=== PATIENT | male | born 1945 | race Caucasian/White ===

== ENCOUNTER 2018-01-09 12:57 | Emergency (ER) | payer MEDICARE ==
[2018-01-09 13:17] VITALS: BP 160/87; PULSE 72; RESP 18; TEMP 97.8
[2018-01-09] MEDS ORDERED: DIPH,PERTUS(ACELL)TETVAC-LF 0.5 ML VIAL IM ONE (13:35)
[2018-01-09] MEDS ORDERED: BUPIVACAINE (PF) 0.75% 30 ML VIAL SQ STA (13:36)
[2018-01-09] MEDS ORDERED: IBUPROFEN 600 MG TAB PO STA (13:38)
--- NOTE | 2018-01-09 13:40 | ED ---
Upper Extremity HPI - General Chief Complaint: Extremity Injury, Upper Stated Complaint: severe LAC to rt thumb, Time Seen by Provider: 01/09/18 13:31 Source: patient Mode of arrival: ambulatory Limitations: no limitations - History of Present Illness Initial Comments: 72-year-old male presenting with right thumb laceration that occurred while using a table saw to make his grandson a dresser. She denies any numbness to the area. Unsure when his last tetanus vaccine was. Denies any blood thinner use. Patient is left handed. - Related Data Home Medications Medication Instructions Recorded Confirmed Ascorbic Acid [Vitamin C] 500 mg PO DAILY 08/24/14 12/09/15 Gabapentin [Neurontin] 300 mg PO HS 08/24/14 12/09/15 [place]-3 Fatty Acids/Fish Oil [Fish 1 tab PO DAILY 08/24/14 12/09/15 Oil 1,000 mg Softgel] rOPINIRole HCL [Requip Xl] 4 mg PO 1800 12/09/15 12/09/15 Previous Rx's Medication Instructions Recorded Aspirin 325 mg PO DAILY tab 12/10/15 Ibuprofen [Motrin] 600 mg PO Q6HR PRN #30 tab 01/09/18 Allergies Allergy/AdvReac Type Severity Reaction Status Date / Time No Known Allergies Allergy Verified 12/09/15 16:50 Review of Systems ROS Statement: Those systems with pertinent positive or pertinent negative responses have been documented in the HPI. Review of Systems Constitutional: Denies fever, chills Eyes: Denies change in vision, Denies pain Ears, nose, mouth, throat: Denies headaches, Denies sore throat Cardiovascular: Denies chest pain. Denies palpitations Respiratory: Denies shortness of breath, Denies cough Gastrointestinal: Denies abdominal pain. Denies nausea, vomiting, diarrhea. Genitourinary: Denies hematuria, Denies infections Musculoskeletal: Denies pain, Denies swelling Integumentary: Positive wound Neurological: Denies headache, focal weakness, focal numbness Psychiatric: Denies anxiety, Denies depression Hematologic/Lymphatic: Denies easy bleeding or bruising ROS Other: All systems not noted in ROS Statement are negative. Past Medical History Past Medical History: Coronary Artery Disease (CAD) Additional Past Medical History / Comment(s): restless leg History of Any Multi-Drug Resistant Organisms: None Reported Past Surgical History: Coronary Bypass/CABG, Hernia Repair, Orthopedic Surgery Additional Past Surgical History / Comment(s): 5 vessel Cabg in 2006, 10 years old had abdominal sx, fatty tissue removed from L shoulder Past Psychological History: No Psychological Hx Reported Smoking Status: Never smoker Past Alcohol Use History: None Reported Past Drug Use History: None Reported - Past Family History Father History Unknown: Yes Family Medical History: CVA/TIA, Hypertension, Myocardial Infarction ([place]) Mother Family Medical History: Cancer, Coronary Artery Disease (CAD) Sister(s) Family Medical History: Coronary Artery Disease (CAD) General Exam - General Exam Comments Initial Comments: General: Awake, alert, No acute Distress HENT: Normocephalic. Atraumatic Eyes: PERRL. EOMI. No scleral icterus. No injected conjunctiva Neck: Full ROM Chest/Lungs: Clear to auscultation bilaterally. No wheezing, rhonchi, or rales Cardiac: Regular rate, rhythm. No murmurs or rubs. 2+ radial pulse on right. Capillary refill <3 seconds. Abdomen/GI: Soft, nontender, nondistended. No rebound, guarding, or rigidity. Musculoskeletal: Full ROM. C6 sensation intact bilaterally. Full ROM of thumb Skin: 2 cm laceration to right thumb. Neurologic: A/Ox3, no weakness, no sensory deficit, no abnormal gait, no coordination deficit Limitations: no limitations Course Vital Signs 01/09/18 13:14 Temperature 97.8 F Pulse Rate 72 Respiratory 18 Rate Blood Pressure 160/87 O2 Sat by Pulse 96 Oximetry Procedures - Laceration Laceration #1 Time Out Performed: Yes Indication: laceration Site: hand Size (cm): 2 Description: linear Depth: simple, single layer Anesthetic Used: benzocaine 0.25% Anesthesia Technique: nerve block Amount (mls): 5 Pre-repair: wound explored, irrigated extensively, wound margins revised Type of Sutures: nylon Size of Sutures: 5-0, 6-0 Number of Sutures: 7 Technique: simple, interrupted Patient Tolerated Procedure: well Medical Decision Making - Medical Decision Making 32-year-old male presenting with laceration to right thumb. Initial exam the patient is awake, alert, no acute distress. VSS. Patient's tetanus updated. His x-ray showed no fracture. His wound was repaired after being extensively irrigated. Neurovascularly intact before the procedure. No further emergent workup indicated. The patient was given return to ED instructions. They were instructed to follow up with their primary care provider. Stable for discharge at this time. Disposition Clinical Impression: Laceration of right thumb Disposition: HOME SELF-CARE Condition: Good Instructions: Laceration (ED) Additional Instructions: Follow up with your primary care doctor for suture removal in 10 days Prescriptions: Ibuprofen [Motrin] 600 mg PO Q6HR PRN #30 tab PRN Reason: Pain Is patient prescribed a controlled substance at d/c from ED?: No Referrals: Stephen Sosa DO [Primary Care Provider] - 1-2 days
--- NOTE | 2018-01-09 14:04 | XR ---
EXAMINATION TYPE: XR finger RT , 3 VIEWS DATE OF EXAM ORDERED: 01/09/2018 HISTORY: Pain. COMPARISON: None. FINDINGS: No fracture, dislocation or radiopaque foreign body is seen. There are degenerative changes in the first carpal metacarpal joint. IMPRESSION: NO ACUTE OSSEOUS LESION.
== END 2018-01-09 15:11 | disposition home or self-care (01) ==
LOC: EC 12:57
DX: S61.011A Laceration without foreign body of right thumb without damage to nail, initial encounter (principal); I25.10 Atherosclerotic heart disease of native coronary artery without angina pectoris; G25.81 Restless legs syndrome; Z23 Encounter for immunization; Z79.899 Other long term (current) drug therapy; Z95.1 Presence of aortocoronary bypass graft; W31.2XXA Contact with powered woodworking and forming machines, initial encounter
CPT/HCPCS: 12001; 90471; 90715; 99283

== ENCOUNTER 2018-05-26 06:28 | Day surgery (SDC) | payer MEDICARE ==
[~2018-05-26 06:28] MED LIST: ALPRAZolam 0.25 MG TAB PO PRN; ALPRAZolam 0.5 MG TAB PO PRN; ASPIRIN 325 MG TAB PO STA; ATORVASTATIN 80 MG TAB PO STA; NITROGLYCERIN SL TABS 0.4 MG TAB SUBLINGUAL PRN; SODIUM CHLORIDE 0.9% 1,000 ML in EMPTY BAG 1 BAG IV ONE
[2018-05-26 07:06] LABS: Glucose,Whole Blood 92 mg/dL (75-99)
[2018-05-26] MEDS ORDERED: SODIUM CHLORIDE 0.9% 1,000 ML IV ONE (07:12)
[2018-05-26] MEDS ORDERED: fentaNYL (PF) 50 MCG/ML 2 ML AMP ONE (07:16)
[2018-05-26] MEDS ORDERED: LIDOCAINE 1% INJ 10MG/ML (20 ML MDV) ONE (07:16)
[2018-05-26 07:21] LABS: Basophils % (A) 1 %; Eosinophils # (A) 0.1 k/uL (0-0.7); Eosinophils % (A) 2 %; HCT 45.4 % (39.0-53.0); HGB 15.1 gm/dL (13.0-17.5); Lymphocytes # (A) 1.5 k/uL (1.0-4.8); Lymphocytes % (A) 26 %; MCH 27.5 pg (25.0-35.0); MCHC 33.2 g/dL (31.0-37.0); Mean Platelet Volume 7.1; Monocytes # (A) 0.5 k/uL (0-1.0); Monocytes % (A) 9 %; Neutrophils # (A) 3.5 k/uL (1.3-7.7); Neutrophils % (A) 60 %; Platelet Count 242 k/uL (150-450); RBC 5.47 m/uL (4.30-5.90); RDW 13.9 % (11.5-15.5); WBC 5.8 k/uL (3.8-10.6)
[2018-05-26 07:26] LABS: Anion Gap 6 mmol/L; Blood Urea Nitrogen 21 mg/dL (9-20); Calcium 8.8 mg/dL (8.4-10.2); Carbon Dioxide 25 mmol/L (22-30); Chloride 109 mmol/L (98-107); Glucose 98 mg/dL (74-99); Potassium 4.1 mmol/L (3.5-5.1); Sodium 140 mmol/L (137-145)
[2018-05-26] MEDS ORDERED: fentaNYL (PF) 50 MCG/ML 2 ML AMP IV ONE (07:55)
[2018-05-26] MEDS ORDERED: LIDOCAINE 1% INJ 10MG/ML (20 ML MDV) SQ ONE (08:01)
[2018-05-26] MEDS ORDERED: CLOPIDOGREL 75 MG TAB ONE (08:21)
[2018-05-26] MEDS ORDERED: CLOPIDOGREL 75 MG TAB PO ONE (08:24)
[2018-05-26] MEDS ORDERED: BIVALIRUDIN BOLUS 250 MG/50 ML IV ONE (08:25)
[2018-05-26] MEDS ORDERED: BIVALIRUDIN 250 MG in SODIUM CHLORIDE 0.9% 40 ML IV ONE (08:25)
[2018-05-26] MEDS ORDERED: NITROGLYCERIN 1000MCG/10ML SYRINGE INTRACORON ONE (08:25)
[2018-05-26] MEDS ORDERED: IOPAMIDOL-300 50ML BTL INJ ONE (08:47)
[2018-05-26] MEDS ORDERED: IOPAMIDOL-370 125ML BTL INJ ONE (08:48)
[2018-05-26] MEDS ORDERED: MAG HYDROX/AL HYDROX/SIMETH 30 ML CUP PO PRN (09:12)
[2018-05-26] MEDS ORDERED: RX INFO: IV CONTRAST WAS GIVEN 1 EACH MISC MISCELLANE PRN (09:12)
[2018-05-26] MEDS ORDERED: NITROGLYCERIN SL TABS 0.4 MG TAB SUBLINGUAL PRN (09:12)
[2018-05-26] MEDS ORDERED: ATROPINE SULFATE 0.1 MG/ML 10ML SYRINGE IV PRN (09:12)
[2018-05-26] MEDS ORDERED: ZOLPIDEM 5 MG TAB PO PRN (09:12)
[2018-05-26] MEDS ORDERED: SODIUM CHLORIDE 0.9% 1,000 ML IV SCH (09:15)
--- NOTE | 2018-05-26 10:44 | CC ---
CARDIAC CATHETERIZATION REPORT Mr. Urbano is a 72-year-old male with known history of coronary artery disease, status post bypass grafting in 2005 who presented with new onset symptoms of chest discomfort, reminding him of the symptoms he felt prior to his bypass as well as dyspnea on exertion. In view of that, recommendation made regarding cardiac catheterization. The procedures, risks and complication were discussed with the patient who is in full understanding and agreement. PROCEDURE: Patient was brought to labor relations teacher in a fasting semi-sedated state after receiving fentanyl and Benadryl and achieving moderate conscious sedated state. Using Xylocaine anesthesia and Seldinger technique, a 6-Gabonese sheath was introduced in the right femoral artery. Selective right and left coronary angiography was performed using 6- Gabonese 4 bend right and left Gabe catheter, multiple views of the coronary artery including hemiaxial views obtained. Following that, the 6-Gabonese right Gabe catheter was used to cannulate the saphenous vein graft bypasses, the radial artery bypass, the XOCHITL and the ANDREWS. Images of the grafts were obtained. Following that, a 6-Gabonese tight pigtail catheter was introduced in the left ventricle and pressures were calculated. Following that, an ascending aortogram in the [place] view was performed. Following that, catheter was removed. Images were reviewed. FINDINGS: LEFT MAIN: This is a large-sized vessel, bifurcating into left circumflex, left anterior descending artery, left main coronary artery has a 20% plaque distally. LEFT ANTERIOR DESCENDING ARTERY: This vessel is totally occluded proximally with no antegrade flow. LEFT CIRCUMFLEX; This is a nondominant vessel giving rise to a moderately-sized proximal dye obtuse marginal branch that has a 95% stenosis. The rest of the vessel has no high-grade stenosis. RIGHT CORONARY ARTERY: This is a large dominant vessel, bifurcating to PDA and posterolateral segment and branches. The right coronary artery proximally has an eccentric 70% plaque, there is another 80% plaque, hazy at the bifurcation and a 90% plaque in the right PLV. The rest of the vessel has no high-grade stenosis. ANDREWS TO THE LAD: The distal anastomotic site is patent. The flow into the LAD is brisk. There is no evidence of obstructive disease. XOCHITL TO THE DIAGONAL BRANCH: The proximal distal anastomotic sites are patent. The flow into the diagonal branch is brisk. There is no evidence of high-grade stenosis. SAPHENOUS VEIN GRAFT TO THE OBTUSE MARGINAL BRANCH: This graft is totally occluded proximally. SAPHENOUS VEIN GRAFT TO THE RIGHT CORONARY ARTERY:L This graft is totally occluded proximally. RADIAL ARTERY TO THE LEFT CIRCUMFLEX: This graft is totally occluded proximally. LEFT VENTRICULOGRAM: Left ventriculogram was not performed. AORTOGRAM: Aortogram was performed in the [place] view and revealed a tricuspid aortic valve with no evidence of aortic dilatation and no aortic regurgitation. HEMODYNAMICS: There was no gradient across the aortic valve. The left ventricular end-diastolic pressure was 12-16 mmHg. CONCLUSION: 1. Severe triple-vessel coronary artery disease. 2. Patent ANDREWS to LAD. 3. Patent XOCHITL to the diagonal branch. 4. Occluded saphenous vein graft to the obtuse marginal branch and to the right coronary artery. 5. Occluded radial artery to the left circumflex. 6. Normal appearance of the ascending aorta. RECOMMENDATION: In view of finding anatomy, I recommend proceeding with angioplasty and stenting of the right coronary artery. The procedures, risks, and complications were discussed with the patient who is in full understanding and agreement. MMODL / IJN: [id number] /
--- NOTE | 2018-05-26 10:59 | PTCA ---
PERCUTANEOUSTRANS CORORONARY ANGIOGRAPHY Mr. Urbano is a 72-year-old male with a known history of coronary artery disease who presented with new onset chest discomfort. He underwent cardiac catheterization that revealed significant obstructive disease in 3 segment of the right coronary artery. In view of that, recommendation was made regarding angioplasty and stenting. The procedure as well as the risks and complications were discussed with the patient who is in full understanding and agreement. PROCEDURE: A 6-Sinhala FR4 guiding catheter in the system. After cannulating the right coronary ostium a 0.014 balanced medium weight J-wire was advanced across the lesion positioned in the distal right PLV. Subsequently a 2.25 x 12 mm Trek balloon was advanced and 2 inflation maximum of 8 atmospheres were done. Following that, the balloon was removed and a 2.5 x 18 mm Xience Lilly stent was deployed in the right PLV and postdilated at 16 atmospheres. Following that, the balloon was removed and a 3.0 x 15 mm Xience Lilly stent was deployed at the distal segment of the right coronary artery and postdilated at 16 atmospheres. Following that the balloon was removed and a 3.5 x 23 mm Xience Lilly is deployed proximally and postdilated at 16 atmospheres. Following that, the balloon was removed and a 3.25 x 12 mm NC Trek balloon was advanced into the distal right coronary artery and one inflation at 12 atmospheres was done. After the last inflation, after appropriate wait, the balloon and the guidewire were withdrawn back in the guiding catheter. Images were obtained repeated. Those images reveal stable successful stenting. At that point, the guiding catheter, the balloon and the guidewire were removed. The sheath was removed. Hemostasis was obtained with deployment of an Angio-Seal. There was no immediate complication. Patient was returned to his room in stable condition. Of note, the patient had chest discomfort and EKG changes with the inflation that resolved at the end of the procedure. He received Angiomax per protocol as well as oral loading dose of clopidogrel. RESULTS: 1. Successful stenting of the right PLV with reduction of stenosis from 90% to 0%. 2. Successful stenting of the distal right coronary artery with reduction of stenosis from 80% to 0%. 3. Successful stenting of the proximal right coronary artery with reduction of stenosis from 70% to 0%. RECOMMENDATION: Patient will be continued on aspirin, Plavix and statin. The importance of dual antiplatelet treatment was discussed with the patient and his family and are in full understanding and agreement. He will be re-evaluated regarding the need to undergo revascularization of his first obtuse marginal branch. Duration of procedure is 60 minutes. DES / PORFIRIO: [id number] /
[2018-05-26 14:38] VITALS: RESP 18
[2018-05-26 16:49] VITALS: BMI 28.8
[2018-05-26] MEDS ORDERED: GABAPENTIN 400 MG CAP PO SCH (18:00)
[2018-05-26] MEDS ORDERED: ATORVASTATIN 80 MG TAB PO SCH (21:00)
[2018-05-27 07:11] LABS: Anion Gap 5 mmol/L; Blood Urea Nitrogen 16 mg/dL (9-20); Calcium 9.1 mg/dL (8.4-10.2); Carbon Dioxide 27 mmol/L (22-30); Chloride 107 mmol/L (98-107); Glucose 97 mg/dL (74-99); Potassium 4.7 mmol/L (3.5-5.1); Sodium 139 mmol/L (137-145)
[2018-05-27] MEDS ORDERED: ASPIRIN 81 MG PO SCH (09:00)
[2018-05-27] MEDS ORDERED: CLOPIDOGREL 75 MG TAB PO SCH (09:00)
[2018-05-27 09:51] VITALS: BP 123/72; PULSE 55; TEMP 97.8
--- NOTE | 2018-05-27 11:23 | PN ---
PROGRESS NOTE Mr. Urbano is a 72-year-old male with a known history of coronary artery disease, status post coronary artery bypass grafting who had symptoms of progressive angina pectoris, underwent cardiac catheterization, was found to have critical stenosis involving the right coronary artery in three different segment and stenosis in the first obtuse marginal branch with patent ANDREWS to the LAD and patent XOCHITL to the diagonal branch. Underwent stenting of the right coronary artery. He is doing well today. He is ambulating without difficulty. He is denying any symptoms of chest pain. He denies any dizziness or palpitation. He continued be on aspirin once a day, Lipitor 80 mg daily, Plavix 75 mg daily, ropinirole. PHYSICAL EXAMINATION: Blood pressure 123/70 with a heart rate in the 50s. LUNGS: Clear. HEART: Regular rate and rhythm, S1, S2. No S3. No rub. ABDOMEN: Soft, nontender, right groin no hematoma. EXTREMITIES: No edema. LAB DATA: Revealed BUN and creatinine 16 and 0.9, potassium 4.7. EKG with no acute changes. IMPRESSION: 1. Status post stenting of the right coronary artery. 2. Hyperlipidemia. 3. Status post coronary artery bypass grafting. RECOMMENDATION: Patient will be discharged home today and followed in 1 week and will be re-evaluated regarding the need to undergo revascularization of his left circumflex. MMODL / IJN: [id number] /
[2018-05-27] MEDS ORDERED: MULTIVITAMINS, THERA 1 EACH TAB PO SCH (12:00)
== END 2018-05-27 11:41 | disposition home or self-care (01) ==
LOC: CATHCVL 06:28 → 3SCARD 08:55 → CATHCVL 05-27 11:41
PROVIDERS: ATTEND Internal Medicine Interventional Cardiology
DX: I25.10 Atherosclerotic heart disease of native coronary artery without angina pectoris (principal); I25.810 Atherosclerosis of coronary artery bypass graft(s) without angina pectoris; I25.82 Chronic total occlusion of coronary artery; I10 Essential (primary) hypertension; R07.9 Chest pain, unspecified; E78.2 Mixed hyperlipidemia; Z95.1 Presence of aortocoronary bypass graft; Z79.82 Long term (current) use of aspirin; Z79.899 Other long term (current) drug therapy; Z79.02 Long term (current) use of antithrombotics/antiplatelets
CPT/HCPCS: 93458; 80048 ×2; 85025; C9600; C1769 ×2; C1760; C1887; C1725 ×2; C1894; C1874; J2001; J3010; J0583; Q9967 ×2

== ENCOUNTER 2018-05-31 20:13 | Inpatient (IN) | payer MEDICARE ==
[2018-05-31] MEDS ORDERED: SODIUM CHLORIDE 0.9% 1,000 ML IV STA ×2 (20:22)
[2018-05-31] MEDS ORDERED: HEPARIN SODIUM,PORCINE 5,000 UNIT/ML 1 ML VIAL IV PRN (20:22)
[2018-05-31] MEDS ORDERED: NITROGLYCERIN SL TABS 0.4 MG TAB SUBLINGUAL PRN ×2 (20:22→21:50)
[2018-05-31] MEDS ORDERED: HEPARIN SODIUM,PORCINE 5,000 UNIT/ML 1 ML VIAL IV ONE (20:22)
[2018-05-31] MEDS ORDERED: ASPIRIN 81 MG PO STA ×2 (20:22)
[2018-05-31 20:23] LABS: Glucose,Whole Blood 128 mg/dL (75-99)
[2018-05-31] MEDS ORDERED: HEPARIN SOD,PORK IN 0.45% NACL 25,000 UNIT in 0.45% NACL 1 250ML.BAG IV SCH (20:30)
--- NOTE | 2018-05-31 20:32 | ED ---
Chest Pain HPI - General Chief Complaint: Chest Pain Stated Complaint: Chest Pain Source: EMS, RN notes reviewed, old records reviewed Mode of arrival: EMS Limitations: no limitations - History of Present Illness Initial Comments: This is a 72-year-old male the ER for evaluation. Patient's of poor strain secondary to stress currently. Patient did from EMS. Patient is having chest pain with history of CAD, stents times one week ago. Dr. Bansal disease stents. Patient is having some shortness of breath and diaphoresis and weakness currently. Patient's been taking all medications as prescribed MD Complaint: chest pain -: hour(s) Onset: during rest Pain Location: left chest Pain Radiation: LUE Severity: severe Severity scale (1-10): 8 Quality: aching, heaviness Consistency: constant Improves With: nothing Worsens With: nothing Context: recent surgery (Cath) Anginal Symptoms: nausea, diaphoresis, dyspnea, sense of impending doom Other Symptoms: palpitations Treatments Prior to Arrival: aspirin, nitroglycerin - Related Data Home Medications Medication Instructions Recorded Confirmed Gabapentin [Neurontin] 400 mg PO 1800 08/24/14 05/31/18 rOPINIRole HCL [Requip Xl] 4 mg PO HS 12/09/15 05/31/18 Aspirin 81 mg PO DAILY 05/20/18 05/31/18 Multivit-Min/Folic/Vit K/Lycop 1 each PO DAILY 05/20/18 05/31/18 [Men's Multivitamin Tablet] Previous Rx's Medication Instructions Recorded Atorvastatin [Lipitor] 80 mg PO HS #90 tab 05/27/18 Nitroglycerin Sl Tabs [Nitrostat] 0.4 mg SUBLINGUAL Q5M PRN #25 tab 05/27/18 Allergies Allergy/AdvReac Type Severity Reaction Status Date / Time No Known Allergies Allergy Verified 05/31/18 22:44 Review of Systems ROS Statement: Those systems with pertinent positive or pertinent negative responses have been documented in the HPI. ROS Other: All systems not noted in ROS Statement are negative. Past Medical History Past Medical History: Coronary Artery Disease (CAD), Hearing Disorder / Deafness, Myocardial Infarction ([place]) Additional Past Medical History / Comment(s): RLS. SHORTNESS OF BREATH, OCC CP. Last Myocardial Infarction Date:: 2005 History of Any Multi-Drug Resistant Organisms: None Reported Past Surgical History: Coronary Bypass/CABG, Heart Catheterization, Hernia Repair, Orthopedic Surgery Additional Past Surgical History / Comment(s): 5 vessel Cabg in 2006; 10 years old had abdominal sx; fatty tissue removed from L shoulder. SUZANNE FOOT SURG. C. CATH 2014. stents 2019 Past Anesthesia/Blood Transfusion Reactions: No Reported Reaction, Family History of Problems w/ Anesthesia Additional Past Anesthesia/Blood Transfusion Reaction / Comment(s): MOTHER HAD ANESTHESIA PROB, UNSURE WHAT. Past Psychological History: No Psychological Hx Reported Smoking Status: Never smoker Past Alcohol Use History: None Reported Past Drug Use History: None Reported - Past Family History Father History Unknown: Yes Family Medical History: CVA/TIA, Hypertension, Myocardial Infarction ([place]) Mother Family Medical History: Cancer, Coronary Artery Disease (CAD) Sister(s) Family Medical History: Coronary Artery Disease (CAD) General Exam Limitations: no limitations General appearance: alert, in no apparent distress, anxious, in distress Head exam: Present: atraumatic, normocephalic, normal inspection Eye exam: Present: normal appearance, PERRL, EOMI. Absent: scleral icterus, conjunctival injection, periorbital swelling ENT exam: Present: normal exam, mucous membranes moist Neck exam: Present: normal inspection. Absent: tenderness, meningismus, lymphadenopathy Respiratory exam: Present: normal lung sounds bilaterally. Absent: respiratory distress, wheezes, rales, rhonchi, stridor Cardiovascular Exam: Present: regular rate, normal rhythm, normal heart sounds. Absent: systolic murmur, diastolic murmur, rubs, gallop, clicks GI/Abdominal exam: Present: soft, normal bowel sounds. Absent: distended, tenderness, guarding, rebound, rigid Extremities exam: Present: normal inspection, full ROM, normal capillary refill. Absent: tenderness, pedal edema, joint swelling, calf tenderness Back exam: Present: normal inspection Neurological exam: Present: alert, oriented X3, CN II-XII intact Psychiatric exam: Present: normal affect, normal mood Skin exam: Present: warm, dry, intact, normal color. Absent: rash Course Vital Signs 05/31/18 20:15 Temperature 98.8 F Pulse Rate 90 Respiratory 20 Rate Blood Pressure 152/98 O2 Sat by Pulse 100 Oximetry - Reevaluation(s) Reevaluation #1: 05/31/18 21:17 STEMI page secondary to prehospital EKG Financial Aid was activated and cardiology is spoken with, Dr. Franco Medical record is reviewed including Financial Aid report from a week ago Patient has remained with normal vital signs throughout ER stay Chest Pain MDM - MDM 70 female the ER for evaluation coming in positive ST elevated [place], patient is 1 week out of cardiac cath with stent placement. The Financial Aid for evaluation of inferior wall [place] likely right-sided heart attack Critical Care Time Critical Care Time: Yes Total Critical Care Time: 31 Disposition Clinical Impression: Unstable angina, ST elevation myocardial infarction (STEMI) Disposition: ADMITTED IP TO THIS HOSP Condition: Critical Is patient prescribed a controlled substance at d/c from ED?: No
--- NOTE | 2018-05-31 20:46 | XR ---
EXAMINATION TYPE: XR chest 1V portable DATE OF EXAM: 05/31/2018 COMPARISON: 12/09/2015 HISTORY: Chest pain TECHNIQUE: Single frontal view of the chest is obtained. FINDINGS: There is no heart failure nor confluent pneumonic infiltrate. There is some coarsening of interstitial markings. There are chest leads. There are sternal wires. IMPRESSION: Mild pulmonary fibrosis. Lung markings increased slightly compared to old exam. No heart failure.
[2018-05-31] MEDS ORDERED: SODIUM CHLORIDE 0.9% 1,000 ML IV ONE (20:49)
[2018-05-31 20:52] LABS: Basophils % (A) 0 %; Eosinophils # (A) 0.1 k/uL (0-0.7); Eosinophils % (A) 2 %; HCT 42.9 % (39.0-53.0); HGB 14.3 gm/dL (13.0-17.5); Lymphocytes # (A) 1.5 k/uL (1.0-4.8); Lymphocytes % (A) 20 %; MCH 27.3 pg (25.0-35.0); MCHC 33.5 g/dL (31.0-37.0); MCV 81.7 fL (80.0-100.0); Mean Platelet Volume 8.3; Monocytes # (A) 0.7 k/uL (0-1.0); Monocytes % (A) 9 %; Neutrophils # (A) 5.1 k/uL (1.3-7.7); Neutrophils % (A) 67 %; Platelet Count 239 k/uL (150-450); RBC 5.24 m/uL (4.30-5.90); RDW 14.2 % (11.5-15.5); WBC 7.6 k/uL (3.8-10.6)
[2018-05-31] MEDS ORDERED: LIDOCAINE 1% INJ 10MG/ML (20 ML MDV) SQ ONE (20:58)
[2018-05-31 21:02] LABS: Albumin 3.1 g/dL (3.5-5.0); Calcium 8.2 mg/dL (8.4-10.2); Total Bilirubin 0.7 mg/dL (0.2-1.3); Total Protein 5.5 g/dL (6.3-8.2)
[2018-05-31 21:07] LABS: INR 1.1 (<1.2); Partial Thromboplastin Time 20.9 sec (22.0-30.0); Prothrombin Time 11.4 sec (9.0-12.0)
[2018-05-31] MEDS ORDERED: niCARdipine 25 MG/10 ML VIAL ONE (21:08)
[2018-05-31] MEDS ORDERED: HEPARIN SODIUM 1,000 UN/ML (10ML VL) ONE (21:08)
[2018-05-31] MEDS: NITROGLYCERIN 1000MCG/10ML SYRINGE INTRACORON ONE ×3 (21:12→21:21)
[2018-05-31] MEDS ORDERED: CLOPIDOGREL 75 MG TAB ONE (21:13)
[2018-05-31] MEDS ORDERED: TICAGRELOR 90 MG TAB ONE (21:14)
[2018-05-31] MEDS ORDERED: TICAGRELOR 90 MG TAB PO ONE (21:16)
[2018-05-31 21:20] LABS: Creatine Kinase MB 1.2 ng/mL (0.0-2.4)
[2018-05-31 21:23] LABS: Troponin I 0.085 ng/mL (0.000-0.034)
[2018-05-31] MEDS ORDERED: IOPAMIDOL-370 125ML BTL INJ ONE (21:37)
[2018-05-31] MEDS ORDERED: IOPAMIDOL-370 100ML BTL INJ ONE (21:47)
[2018-05-31] MEDS ORDERED: ATROPINE SULFATE 0.1 MG/ML 10ML SYRINGE IV PRN (21:50)
[2018-05-31] MEDS ORDERED: MAG HYDROX/AL HYDROX/SIMETH 30 ML CUP PO PRN (21:50)
[2018-05-31] MEDS ORDERED: RX INFO: IV CONTRAST WAS GIVEN 1 EACH MISC MISCELLANE PRN (21:50)
[2018-05-31] MEDS ORDERED: ZOLPIDEM 5 MG TAB PO PRN (21:50)
[2018-05-31] MEDS ORDERED: SODIUM CHLORIDE 0.9% 1,000 ML IV SCH (22:00)
--- NOTE | 2018-05-31 22:11 | P.CRDCN ---
History of Present Illness Consult date: 05/31/18 Chief complaint: Chest discomfort History of present illness: This is a 73-year-old gentleman with a past medical history significant for coronary artery disease, hypertension, dyslipidemia, was brought to the emergency room by ambulance with a chest discomfort and was diagnosed with acute inferior ST patient myocardial infarction. The patient presented to the hospital last week complaining of chest discomfort and he underwent a heart catheterization which revealed severe disease involving the right coronary artery in the mid and distal portion with the occlusion of all vein grafts with patent ANDREWS into LAD and patent free XOCHITL to diagonal branch. At that point the patient underwent successful stenting of the RCA in the midportion as well as distally. He was in his usual state of health when he was attending a meeting earlier toda y when he started experiencing discomfort in the chest, as a pressure on the chest, without any radiation but it was associated with shortness of breath and sweating. Ambulance was called and the patient was found to be an acute inferior ST patient myocardial infarction. He underwent an emergent heart catheterization and was found to have an early stent thrombosis. I did an aspiration thrombectomy with the extraction off large red clot from the RCA. Subsequently he underwent balloon angioplasty and stenting of the RCA with a good angiographic results by the end and without any complication with the resolving of the EKG changes as well as chest pain at the end of the procedure. Past Medical History Past Medical History: Coronary Artery Disease (CAD), Hearing Disorder / Deafness, Myocardial Infarction (AR) Additional Past Medical History / Comment(s): RLS. SHORTNESS OF BREATH, OCC CP. Last Myocardial Infarction Date:: 2005 History of Any Multi-Drug Resistant Organisms: None Reported Past Surgical History: Coronary Bypass/CABG, Heart Catheterization, Hernia Repair, Orthopedic Surgery Additional Past Surgical History / Comment(s): 5 vessel Cabg in 2005; 10 years old had abdominal sx; fatty tissue removed from L shoulder. SUZANNE FOOT SURG. C. CATH 2014. stents 2019 Past Anesthesia/Blood Transfusion Reactions: No Reported Reaction, Family History of Problems w/ Anesthesia Additional Past Anesthesia/Blood Transfusion Reaction / Comment(s): MOTHER HAD ANESTHESIA PROB, UNSURE WHAT. Past Psychological History: No Psychological Hx Reported Smoking Status: Never smoker Past Alcohol Use History: None Reported Past Drug Use History: None Reported - Past Family History Father History Unknown: Yes Family Medical History: CVA/TIA, Hypertension, Myocardial Infarction (AR) Mother Family Medical History: Cancer, Coronary Artery Disease (CAD) Sister(s) Family Medical History: Coronary Artery Disease (CAD) Medications and Allergies Home Medications Medication Instructions Recorded Confirmed Type Gabapentin [Neurontin] 400 mg PO 1800 08/24/14 05/26/18 History rOPINIRole HCL [Requip Xl] 4 mg PO HS 12/09/15 05/26/18 History Aspirin 81 mg PO DAILY 05/20/18 05/26/18 History Multivit-Min/Folic/Vit K/Lycop 1 each PO DAILY 05/20/18 05/26/18 History [Men's Multivitamin Tablet] Aspirin 81 mg PO DAILY chew 05/27/18 Rx Atorvastatin [Lipitor] 80 mg PO HS #90 tab 05/27/18 Rx Clopidogrel [Plavix] 75 mg PO DAILY #90 tab 05/27/18 Rx Nitroglycerin Sl Tabs [Nitrostat] 0.4 mg SUBLINGUAL Q5M PRN #25 tab 05/27/18 Rx Allergies Allergy/AdvReac Type Severity Reaction Status Date / Time No Known Allergies Allergy Verified 05/20/18 12:17 Physical Exam Vitals: Vital Signs Temp Pulse Resp BP Pulse Ox 05/31/18 20:36 76 18 140/99 100 05/31/18 20:15 98.8 F 90 20 152/98 100 Intake and Output 05/31/18 05/31/18 05/31/18 06:59 14:59 22:59 Intake Total 550 Balance 550 Intake: IV 550 Other: Weight 102.875 kg - Constitutional General appearance: no acute distress - Respiratory Respiratory: bilateral: CTA - Cardiovascular Rhythm: regular Heart sounds: normal: S1, S2 Abnormal Heart Sounds: systolic murmur Results 05/31/18 20:15 05/31/18 20:15 Cardiac Enzymes 05/31/18 05/31/18 Range/Units 20:15 20:15 AST 23 (17-59) U/L CK-MB (CK-2) 1.2 (0.0-2.4) ng/mL Troponin I 0.085 H* (0.000-0.034) ng/mL Coagulation 05/31/18 Range/Units 20:15 PT 11.4 (9.0-12.0) sec APTT 20.9 L (22.0-30.0) sec CBC 05/31/18 Range/Units 20:15 WBC 7.6 (3.8-10.6) k/uL RBC 5.24 (4.30-5.90) m/uL Hgb 14.3 (13.0-17.5) gm/dL Hct 42.9 (39.0-53.0) % Plt Count 239 (150-450) k/uL Comprehensive Metabolic Panel 05/31/18 Range/Units 20:15 Sodium 138 (137-145) mmol/L Potassium 4.0 (3.5-5.1) mmol/L Chloride 108 H (98-107) mmol/L Carbon Dioxide 21 L (22-30) mmol/L BUN 21 H (9-20) mg/dL Creatinine 1.11 (0.66-1.25) mg/dL Glucose 121 H (74-99) mg/dL Calcium 8.2 L (8.4-10.2) mg/dL AST 23 (17-59) U/L ALT 39 (21-72) U/L Alkaline Phosphatase 70 (38-126) U/L Total Protein 5.5 L (6.3-8.2) g/dL Albumin 3.1 L (3.5-5.0) g/dL Current Medications Generic Name Dose Route Start Last Admin Trade Name Freq PRN Reason Stop Dose Admin Al Hydroxide/Mg Hydroxide 30 ml 05/31/18 21:50 Maalox PO Q4HR PRN Heartburn Aspirin 81 mg 06/01/18 09:00 Aspirin PO DAILY [facility] Atorvastatin Calcium 80 mg 06/01/18 09:00 Lipitor PO DAILY [facility] Atropine Sulfate 0.5 mg 05/31/18 21:50 Atropine IV ONCE PRN Symptomatic Bradycardia Heparin Sodium (Porcine) 0 unit 05/31/18 20:22 Heparin IV Q6HR PRN Low PTT Protocol Heparin Sodium/Sodium Chloride 250 mls @ 10 mls/hr 05/31/18 20:30 25,000 unit/ Sodium Chloride IV .Q24H HITESH Protocol Sodium Chloride 1,000 mls @ 75 mls/hr 05/31/18 20:22 Saline 0.9% IV 06/01/18 09:41 .[id number] STA Sodium Chloride 1,000 mls @ 100 mls/hr 05/31/18 22:00 Saline 0.9% IV 06/01/18 03:01 .Q10H HITESH Metoprolol Tartrate 25 mg 05/31/18 21:00 Lopressor PO BID HITESH Miscellaneous Information 1 each 05/31/18 21:50 Rx Info: Iv Contrast Was Given MISCELLANE 06/02/18 21:50 DAILY PRN Per Protocol Nitroglycerin 0.4 mg 05/31/18 21:50 Nitrostat SUBLINGUAL Q5M PRN Chest Pain Ticagrelor 90 mg 06/01/18 09:00 Brilinta PO BID HITESH Zolpidem Tartrate 5 mg 05/31/18 21:50 Ambien PO HS PRN Insomnia Intake and Output 05/31/18 05/31/18 05/31/18 06:59 14:59 22:59 Intake Total 550 Balance 550 Intake: IV 550 Other: Weight 102.875 kg Patient Weight 06/01/18 06:59 Weight 102.875 kg 05/31/18 20:15 05/31/18 20:15 Assessment and Plan Assessment: Assessment #[address] elevation myocardial infarction #2 early "subacute" stent thrombosis of the RCA #3 known coronary artery disease and status post bypass as described above #4 hypertension #5 dyslipidemia #6 multiple comorbid conditions Plan #1 dual antiplatelet therapy. I am changing to Plavix to Brilinta #2 aggressive cholesterol control #3 risk factors modification #4 an echocardiogram was Doppler #6 ICU admission #7 follow-up with the patient Thank you for allowing us participate in his care and we will continue following up with him
[2018-05-31 22:29] LABS: Glucose,Whole Blood 108 mg/dL (75-99)
[2018-05-31 22:52] VITALS: BMI 32.5
[2018-05-31] MEDS: METOPROLOL TARTRATE 25 MG TAB PO SCH (23:07)
[2018-05-31] MEDS ORDERED: fentaNYL (PF) 50 MCG/ML 2 ML AMP IVP PRN (23:08)
[2018-06-01] MEDS ORDERED: ONDANSETRON 4 MG/2 ML VIAL IVP PRN (00:44)
[2018-06-01 07:24] LABS: Basophils % (A) 1 %; Eosinophils # (A) 0.1 k/uL (0-0.7); Eosinophils % (A) 1 %; HCT 44.5 % (39.0-53.0); HGB 14.6 gm/dL (13.0-17.5); Lymphocytes # (A) 1.2 k/uL (1.0-4.8); Lymphocytes % (A) 17 %; MCH 27.3 pg (25.0-35.0); MCHC 32.7 g/dL (31.0-37.0); MCV 83.4 fL (80.0-100.0); Mean Platelet Volume 7.6; Monocytes # (A) 0.6 k/uL (0-1.0); Monocytes % (A) 8 %; Neutrophils % (A) 71 %; Platelet Count 218 k/uL (150-450); RBC 5.34 m/uL (4.30-5.90); RDW 13.9 % (11.5-15.5); WBC 7.1 k/uL (3.8-10.6)
[2018-06-01 07:32] LABS: Partial Thromboplastin Time 23.1 sec (22.0-30.0); Prothrombin Time 10.8 sec (9.0-12.0)
[2018-06-01 07:37] LABS: Anion Gap 4 mmol/L; Blood Urea Nitrogen 17 mg/dL (9-20); Calcium 8.4 mg/dL (8.4-10.2); Carbon Dioxide 26 mmol/L (22-30); Chloride 108 mmol/L (98-107); Cholesterol 87 mg/dL (<200); Glucose 91 mg/dL (74-99); HDL Cholesterol 31 mg/dL (40-60); LDL Cholesterol,Calculated 40 mg/dL (0-99); Magnesium 1.9 mg/dL (1.6-2.3); Phosphorus 3.8 mg/dL (2.5-4.5); Potassium 4.2 mmol/L (3.5-5.1); Sodium 138 mmol/L (137-145); Triglycerides 78 mg/dL (<150)
--- NOTE | 2018-06-01 07:59 | CC ---
CARDIAC CATHETERIZATION REPORT DATE OF SERVICE: May 31, 2018 PERFORMING PHYSICIAN: Jean Carlos Franco MD, candle wrapping machine operator. PROCEDURE PERFORMED: 1. Selective left and right coronary angiogram. 2. Successful stenting of the distal right coronary artery using 3.5 x 23 mm Xience drug-eluting stent, which was post dilated using 3.75 mm NC balloon with an excellent angiographic results and reduction of stenosis from 100% to 0%. 3. Selective right internal mammary artery angiogram to diagonal angiogram. 4. Selective left internal mammary artery to LAD angiogram. 5. Left heart catheterization. INDICATION: This is a 72-year-old gentleman with known history of coronary artery disease who presented to the hospital last week complaining of chest discomfort. At that point, he underwent a heart catheterization and he was found to have severe disease involving the right coronary artery as well as he was found to have the occlusion of all vein grafts. The ANDREWS to LAD was patent and free XOCHITL to diagonal was patent at that point. The patient underwent successful stenting of the RCA and he was discharged from the hospital in stable medical condition. He presented to the hospital with chest discomfort and the EKG revealed acute inferior ST-elevation myocardial infarction and because of that, a heart catheterization emergency was advised. APPROACH: Right common femoral artery. COMPLICATION: None. LEVEL OF SEDATION: Moderate with sedation length of 43 minutes. Door to balloon was 42 minutes. PROCEDURE DESCRIPTION: After obtaining an informed consent, the patient was brought to the cardiac slab polisher. The right common femoral artery was cannulated using micropuncture technique, the micropuncture wire passed easily then I placed a 6-Singaporean sheath in the right common femoral artery. I did go right away with a RCA guide. I did engage the right coronary artery and I did selective right coronary angiogram where I did find the acute total occlusion of the RCA distally, which seems to be stent thrombosis. At that point, I decided to intervene on the right coronary artery. Please see a separate paragraph for that. Subsequently I did selective right internal mammary artery to diagonal angiogram using the JR4 guide. The left internal mammary artery to LAD angiogram was performed using the JR4 guide as well. After that, I did selective left coronary angiogram using JL4 catheter. After that I did left heart catheterization using 6-Singaporean pigtail catheter. The procedure was completed without any complication. SELECTIVE CORONARY ANGIOGRAM: 1. The left main is a large caliber vessel. The left main has a plaque distally appeared to be in the range of 50%. 2. The left circumflex is a medium to large caliber vessel and it is a non dominant vessel. The ostial of the left circumflex appeared to be involved in the plaque from the left main which appeared to be in the range of 50%. The left circumflex proximally gives rise into a large OM branch which appeared to have disease in the range of 80% to 90%. The left circumflex continues after that as a moderate caliber vessel in the AV groove. 3. The left anterior descending artery is 100% occluded in the proximal portion from the left main. 4. The Right Coronary Artery: The proximal RCA appeared to be normal. The mid RCA is stented and the stent is patent. The RCA distally is 100% occluded, which seems to be in-stent occlusion. CORONARY BYPASSES ANGIOGRAM: 1. The ANDREWS to LAD is patent. 2. The free XOCHITL to diagonal branch appeared to be patent as well. HEMODYNAMICS: The left ventricular end-diastolic pressure was 16 mmHg without significant gradient across the aortic valve. PCI OF THE RCA: Anticoagulation was achieved using heparin with a weight-based heparin and the patient was given 10,000 units of heparin IV. An ACT monitoring throughout the procedure was done as well. After that I did engage the right coronary artery using JR4 guide. A run-through wire was used to wire the right coronary artery and crossed the acute total occlusion distally. I did after that aspiration thrombectomy with the extraction of large red clot from the RCA. After that I did balloon angioplasty using 3.0 x 18 mm balloon initially before I deployed a 3.5 x 23 mm Xience drug-eluting stent where the stent was positioned under fluoroscopy guidance and deployed under 18 atmospheres for 20 seconds. I post-dilated the stent using 3.75 x 20 mm NC balloon which was inflated under 18 atmospheres for 20 seconds. The following angiogram showed good angiographic results and the procedure was completed without any complication. CONCLUSION: 1. Early stent thrombosis of the distal RCA. 2. Successful stenting of the distal RCA using 3.5 x 23 mm Xience drug-eluting stent with good angiographic results. POSTPROCEDURE MANAGEMENT: 1. I am changing the Plavix into Brilinta. 2. Aggressive cholesterol control. 3. An echocardiogram with Doppler. 4. Follow up with the patient. MMODL / IJN: [id number] /
--- NOTE | 2018-06-01 08:29 | LTR ---
May 31, 2018 Re: Ilan Urbano Dear Dr. Sosa: Mr. Ilan Urbano presented to the emergency room at [facility] complaining of chest discomfort and he was diagnosed with acute inferior ST-elevation myocardial infarction. He underwent an emergent heart catheterization and underwent successful stenting of the right coronary artery with a good angiographic result and without any complication. Thank you for allowing us to participate in his care and please do not hesitate to call if you have any question or concern. Sincerely, MD DES Mcconnell / PORFIRIO: [id number] /
[2018-06-01] MEDS ORDERED: ASPIRIN 325 MG TAB PO SCH (09:00)
--- NOTE | 2018-06-01 10:26 | PN ---
PROGRESS NOTE This is a gentleman who underwent stenting of multiple lesions in the tejon RCA by Dr. Bansal on May 26. He presented with what seems to be an in-stent subacute thrombosis and came in with a acute ST-elevation CO last evening, underwent prompt stenting of distal RCA that was totally occluded by Dr. Franco with excellent angiographic result. Patient this morning is comfortable, resting. His groin is clean and dry with a good pulse. He is in sinus rhythm. The EKG changes have improved remarkably. He is known to have prior aortocoronary bypass surgery with vein grafts which were all occluded and ANDREWS to LAD as well as a XOCHITL to diagonal are patent. He is resting comfortably without symptoms. Blood pressure is 128/70, pulse rate is 62/68 per minute, S1-S2 heard normally. No JVD or carotid bruit. Lungs are clear, abdomen and lower extremity exam unchanged. Plan is to continue current medications, increase activity, perform echocardiogram and move him to telemetry tomorrow. MMODL / IJN: [id number] /
[2018-06-01] MEDS: ATORVASTATIN 80 MG TAB PO SCH (10:29)
[2018-06-01] MEDS: TICAGRELOR 90 MG TAB PO SCH ×2 (10:29→20:37)
[2018-06-01] MEDS: ASPIRIN 81 MG PO SCH (10:29)
[2018-06-01] MEDS: METOPROLOL TARTRATE 25 MG TAB PO SCH ×2 (10:30→20:36)
[2018-06-01] MEDS: LISINOPRIL 5 MG TAB PO SCH (20:36)
[2018-06-01] MEDS: GABAPENTIN 400 MG CAP PO SCH (20:36)
[2018-06-01] MEDS ORDERED: ATORVASTATIN 80 MG TAB PO SCH (21:00)
--- NOTE | 2018-06-01 21:14 | HP ---
HISTORY AND PHYSICAL DATE OF ADMISSION: 05/31/2018 DATE OF SERVICE: 06/01/2018 PRESENTING COMPLAINT: Chest pain. HISTORY OF PRESENTING COMPLAINT: This is a pleasant 72-year-old patient of Dr. Stephen Sosa. The patient on 05/26/2018 had undergone cardiac catheterization with 3 stents, including the RCA and the PLV. The patient has a known coronary artery bypass from 2005. Patient's chronic stable medical conditions include restless legs syndrome and hypercholesteremia. 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 The patient did not feel well and this felt like his previous episodes. Patient's house was 4 minutes away and he decided to drive home, took a nitroglycerin, but it did not help; symptoms became much worse. He started feeling tired, rundown, started became cold and clammy, and decided to go down to the ER. In the ER patient was found to have an ST-elevation myocardial infarction of the inferior leads. He was taken to the cardiac catheterization lab. The patient's stents were found to be blocked and patient had further intervention carried out by Dr. Franco. Following that, the patient was admitted to the ICU. The patient previously had been on Plavix, was switched over to Brilinta. Today patient felt better. Has been out of bed. No further chest pain, shortness of breath. Does feel a bit tired. No arrhythmias are noted. REVIEW OF SYSTEMS: CONSTITUTIONAL: None. HEENT: None. RESPIRATORY: None. CARDIOVASCULAR: As above. GASTROINTESTINAL: None. GENITOURINARY: None. MUSCULOSKELETAL: None. DERMATOLOGICAL: None. HEMATOLOGICAL: None. LYMPHATICS: None. PSYCHIATRY: None. NEUROLOGICAL: Restless leg syndrome symptoms. PAST MEDICAL HISTORY: 1. Coronary artery disease. 2. Some decreased hearing. 3. Restless legs syndrome. PAST SURGICAL HISTORY: 1. Coronary artery bypass. 2. Cardiac catheterization with stent. 3. Bypass in 2005. 4. Abdominal surgery 10 years ago. 5. Fatty tissue removed from left shoulder. 6. Bilateral foot surgery. 7. Also had stents 6 days ago. SOCIAL HISTORY: Does not smoke or drink alcohol. 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 FAMILY HISTORY: Coronary artery disease. HOME MEDICATIONS: 1. Lipitor 80 mg at bedtime. 2. Requip XL 4 mg at bedtime. 3. Nitrostat 0.4 sublingually q.5 p.r.n. 4. Men's Multivitamin 1 tablet p.o. daily. 5. Neurontin 400 mg p.o. at 6 p.m. 6. Aspirin 81 p.o. daily. ALLERGIES: NONE. PHYSICAL EXAMINATION: On examination, temperature 97.6, pulse 87, respiration 17, blood pressure 129/85, pulse ox 97%. GENERAL APPEARANCE: Average build. BMI 32.6. Lying in bed, comfortable. EYES: Pupils equal. Conjunctivae normal. HEENT: External appearance of nose and ears normal. Oral cavity normal. NECK: JVD not raised. Mass not palpable. RESPIRATORY: Effort normal. Lungs are clear. CARDIOVASCULAR: First and second sounds normal. No edema. ABDOMEN: Soft, non-tender. Liver and spleen not palpable. LYMPHATIC: No lymph node palpable in neck or axillae. PSYCHIATRY: Alert and oriented x3. Mood and affect normal. NEUROLOGICAL: Pupils equal. Cranial nerves grossly intact. Power and sensation grossly intact. INVESTIGATIONS: White count 7.6, hemoglobin 14.3, potassium 4, BUN 21, creatinine 1.11. Troponin 0.08 and 20.6. LDL 40. EKG tracing, personally reviewed by me, shows ST elevation in inferior leads. Chest x- ray film, personally reviewed by me, is a portable film with questionable venous prominence. Patient does not seem to have a recent echocardiogram. ASSESSMENT: 1. Acute ST-elevation myocardial infarction of the inferior wall. 2. Coronary artery disease with recent stent on 05/26/2018. 3. Restless legs syndrome. PLAN: Patient is currently on aspirin, Lipitor, Lopressor, Brilinta. Care was discussed with the patient. Questions were answered. MMODL / IJN: [id number] /
[2018-06-02 04:55] LABS: Mean Platelet Volume 7.2; Platelet Count 206 k/uL (150-450)
[2018-06-02] MEDS ORDERED: INFLUENZA VACCINE (6 MOS+) 60 MCG/0.5 ML SYRINGE IM ONE (09:00)
[2018-06-02] MEDS: ASPIRIN 81 MG PO SCH (09:38)
[2018-06-02] MEDS: TICAGRELOR 90 MG TAB PO SCH ×2 (09:39→21:04)
[2018-06-02] MEDS: ATORVASTATIN 80 MG TAB PO SCH (09:39)
[2018-06-02] MEDS: METOPROLOL TARTRATE 25 MG TAB PO SCH ×2 (10:24→21:04)
--- NOTE | 2018-06-02 14:14 | ECHOF ---
Referral Reason:eval LV function MEASUREMENTS -------- HEIGHT: 180.3 cm WEIGHT: 99.8 kg BP: 111/86 RVIDd: 2.9 cm (< 3.3) IVSd: 1.0 cm (0.6 - 1.1) LVIDd: 3.0 cm (3.9 - 5.3) LVPWd: 1.7 cm (0.6 - 1.1) IVSs: 1.5 cm LVIDs: 2.1 cm LVPWs: 1.3 cm LAESV Index (A-L): 19.16 ml/m Ao Diam: 3.6 cm (2.0 - 3.7) AV Cusp: 1.9 cm (1.5 - 2.6) LA Diam: 3.7 cm (2.7 - 3.8) MV EXCURSION: 14.577 mm (> 18.000) MV EF SLOPE: 62 mm/s (70 - 150) EPSS: 0.6 cm MV E Brandon: 0.47 m/s MV DecT: 297 ms MV A Brandon: 0.91 m/s MV E/A Ratio: 0.52 RAP: 5.00 mmHg RVSP: 12.32 mmHg FINDINGS -------- Sinus rhythm. This was a technically difficult study with suboptimal views. The left ventricular size is normal. There is mild concentric left ventricular hypertrophy. Overa ll left ventricular systolic function is mild-moderately impaired with, an EF between 40 - 45 %. Ba cristina inferior LV wall motion is hypokinetic. Mid inferior LV wall motion is hypokinetic. Apical inferior LV wall motion is hypokinetic. The right ventricle is normal in size. Normal LA size by volume 22+/-6 ml/m2. The right atrial size is normal. Lumason used The aortic valve is trileaflet and appears structurally normal. The mitral valve leaflets are mildly thickened. Mild mitral annular calcification present. Mild m itral regurgitation is present. Trace tricuspid regurgitation present. The right ventricular systolic pressure, as measured by Dopp ler, is 12.32mmHg. Pulmonic valve appears structurally normal. The aortic root size is normal. IVC Not well visulized. There is no pericardial effusion. CONCLUSIONS -------- 1. Sinus rhythm. 2. This was a technically difficult study with suboptimal views. 3. The left ventricular size is normal. 4. There is mild concentric left ventricular hypertrophy. 5. Overall left ventricular systolic function is mild-moderately impaired with, an EF between 40 - 45 %. 6. Basal inferior LV wall motion is hypokinetic. 7. Mid inferior LV wall motion is hypokinetic. 8. Apical inferior LV wall motion is hypokinetic. 9. The right ventricle is normal in size. 10. Normal LA size by volume 22+/-6 ml/m2. 11. The right atrial size is normal. 12. Lumason used 13. The aortic valve is trileaflet and appears structurally normal. 14. The mitral valve leaflets are mildly thickened. 15. Mild mitral annular calcification present. 16. Mild mitral regurgitation is present. 17. Trace tricuspid regurgitation present. 18. The right ventricular systolic pressure, as measured by Doppler, is 12.32mmHg. 19. Pulmonic valve appears structurally normal. 20. The aortic root size is normal. 21. IVC Not well visulized. 22. There is no pericardial effusion. BRUSH PAINTER: Daphne Benoit RDCS
--- NOTE | 2018-06-02 15:00 | PN ---
PROGRESS NOTE Mr. Urbano is a gentleman who had a total occlusion of RCA. He had a stenting of distal RCA with a larger caliber stent and started on Brilinta by Dr. Franco yesterday. He is doing remarkably well. His right groin is clean and dry with a good pulse. There is no significant hematoma. Pulse is good. Vitals are stable. There is no JVD. S1-S2 heard normally. Lungs are clear. Abdomen and lower extremity exam unchanged. Plan is to increase activity, move him to telemetry, perform an echocardiogram today and possible discharge tomorrow. I discussed my thoughts in detail with the patient. MMODL / IJN: [id number] /
[2018-06-02] MEDS: GABAPENTIN 400 MG CAP PO SCH (17:46)
[2018-06-02] MEDS ORDERED: GABAPENTIN 100 MG CAP PO SCH (18:00)
[2018-06-02] MEDS: LISINOPRIL 5 MG TAB PO SCH (21:04)
--- NOTE | 2018-06-02 22:57 | PN ---
PROGRESS NOTE DATE OF SERVICE: 06/02/2018 PRESENTING COMPLAINT: Tired. INTERVAL HISTORY: This is a patient status post acute ST-elevation myocardial infarction with repeat stenting. The patient recently in the hospital on May 26, 2018 also with intervention and this was stents that closed down. Patient has been up in the hallway. No chest pain or shortness of breath. No arrhythmias. Overall feels much better. REVIEW OF SYSTEMS: Done for constitutional, cardiovascular, GI, pulmonary and relevant findings as above. CURRENT MEDICATIONS: Reviewed that include aspirin, Lipitor, Neurontin, Zestril, Lopressor, Requip and Brilinta. PHYSICAL EXAMINATION: VITAL SIGNS: Temperature 97.6, pulse 59, respiration 14, blood pressure 102/80, pulse ox 93 percent on room air. GENERAL APPEARANCE: Sitting up, comfortable. EYES: Pupils equal. Conjunctivae normal. NECK: JVD not raised. Mass not palpable. RESPIRATORY: Effort normal. LUNGS are clear. CARDIOVASCULAR: 1st and 2nd sounds normal. No edema. ABDOMEN: Soft, nontender. Liver and spleen not palpable. PSYCHIATRY: Alert and oriented x3. Mood and affect normal. INVESTIGATIONS: White count 7.1, hemoglobin 14.6, potassium 4.2. ASSESSMENT: 1. Acute ST-elevation myocardial infarction of the inferior wall. 2. Coronary artery disease with recent stent on 05/26/2018. 3. Restless legs syndrome. 4. Emergent cardiac catheterization with intervention. 5. Ischemic cardiomyopathy EF 40-45 percent on echocardiogram. PLAN: Continue current medication and treatment plan. Patient encouraged to be ambulate. Transfer orders for the patient to be moved to ICU from the cardiac floor. MMODL / IJN: [id number] /
[2018-06-03 05:36] LABS: Mean Platelet Volume 7.5; Platelet Count 202 k/uL (150-450)
[2018-06-03] MEDS: METOPROLOL TARTRATE 25 MG TAB PO SCH (09:06)
[2018-06-03] MEDS: TICAGRELOR 90 MG TAB PO SCH (09:06)
[2018-06-03] MEDS: ATORVASTATIN 80 MG TAB PO SCH (09:06)
[2018-06-03] MEDS: ASPIRIN 81 MG PO SCH (09:07)
--- NOTE | 2018-06-03 10:34 | PN ---
PROGRESS NOTE Mr. Urbano underwent stenting of his RCA performed which was an in-stent subacute thrombosis. He is doing well, had some sharp pains on the right side of the chest, very atypical. I had him ambulate the hallways without symptoms. Vital signs are stable. S1-S2 heard normally. Lungs are clear. Abdomen and lower extremity exam unchanged. Plan is to discharge the patient today and see Dr. Bansal in one week. He will go home on Brilinta 90 mg b.i.d. instead of aspirin. I will also give him lisinopril 5 mg at bedtime, metoprolol tartrate also will be continued. Discharge instructions regarding activity, diet and medications were given and patient will be discharged today and see Dr. Bansal in one week. MMODL / IJN: [id number] /
[2018-06-03 12:35] VITALS: BP 110/58; PULSE 68; RESP 14; TEMP 97.9
--- NOTE | 2018-06-04 07:41 | DS ---
DISCHARGE SUMMARY DATE OF ADMISSION: 05/31/2018 DATE OF DISCHARGE: 06/03/2018 FINAL DIAGNOSES: 1. Acute ST-elevation myocardial infarction of the inferior wall. 2. Coronary artery disease with recent stent 05/26/2018. 3. Restless legs syndrome. 4. Ischemic cardiomyopathy, ejection fraction 40% to 45% on echocardiogram. PROCEDURE: Cardiac cath with stenting. INTERVAL HISTORY: This patient who just had a cardiac cath with stent on 05/26/[address]-elevation myocardial infarction. Yet again intervention had to be carried out with further stenting, more details in cardiology notes. A 2-D echo showed EF as above. Today, patient is up and about doing well, feeling well. Care was discussed with the patient. No cardiac symptoms. Cleared by Cardiology to go home. On examination, temperature 97.9, pulse 68, respirations 14, blood pressure 110/58, pulse ox 96% on room air. Lungs are clear. CARDIOVASCULAR: First and second sounds normal. Troponin peaked at 22. LDL is 40. DISCHARGE MEDICATIONS: 1. Neurontin 400 mg. 2. Requip 4 mg p.o. q.h.s. 3. Men's multivitamin 1 tablet p.o. daily. 4. Lipitor 80 mg q.h.s. 5. Aspirin 81 mg p.o. daily. 6. Zestril 5 mg q.h.s. 7. Lopressor 25 mg b.i.d. 8. Nitrostat 0.4 sublingual q.5 p.r.n. 9. Brilinta 90 mg p.o. b.i.d. Follow up with Dr. Bansal in 1 week. Follow up with Dr. Sosa in 3 days. LABS: CBC, BMP in 1 week. MMODL / IJN: [id number] /
== END 2018-06-03 16:10 | disposition home or self-care (01) | DRG 247 ==
LOC: EC 20:13 → 2SICU 20:23
PROVIDERS: ADMIT Hospitalist; ATTEND Hospitalist
PROC: B2111ZZ Fluoroscopy of Multiple Coronary Arteries using Low Osmolar Contrast (ICD-10-PCS; 2018-05-31)
PROC: B2131ZZ Fluoroscopy of Multiple Coronary Artery Bypass Grafts using Low Osmolar Contrast (ICD-10-PCS; 2018-05-31)
PROC: B2151ZZ Fluoroscopy of Left Heart using Low Osmolar Contrast (ICD-10-PCS; 2018-05-31)
PROC: 027034Z Dilation of Coronary Artery, One Artery with Drug-eluting Intraluminal Device, Percutaneous Approach (ICD-10-PCS; principal; 2018-05-31 20:30)
PROC: 4A023N7 Measurement of Cardiac Sampling and Pressure, Left Heart, Percutaneous Approach (ICD-10-PCS; 2018-05-31 20:30)
DX: I21.A9 Other myocardial infarction type (principal); T82.867A Thrombosis due to cardiac prosthetic devices, implants and grafts, initial encounter; I25.82 Chronic total occlusion of coronary artery; I25.10 Atherosclerotic heart disease of native coronary artery without angina pectoris; G25.81 Restless legs syndrome; I25.5 Ischemic cardiomyopathy; H91.90 Unspecified hearing loss, unspecified ear; E78.00 Pure hypercholesterolemia, unspecified; I10 Essential (primary) hypertension; E78.5 Hyperlipidemia, unspecified; I25.2 Old myocardial infarction; Y83.1 Surgical operation with implant of artificial internal device as the cause of abnormal reaction of the patient, or of later complication, without mention of misadventure at the time of the procedure; Z79.02 Long term (current) use of antithrombotics/antiplatelets; Z79.82 Long term (current) use of aspirin; Z79.899 Other long term (current) drug therapy; Z95.1 Presence of aortocoronary bypass graft; Z82.49 Family history of ischemic heart disease and other diseases of the circulatory system
CPT/HCPCS: 36415; 71045; 80048; 80053; 80061; 82550; 82553; 83735; 84100; 84484; 85025; 85049; 85610; 85730; 93005; 93306; 93459; 94660; 96374; 99291; C1874

== ENCOUNTER → 2018-06-30 | Outpatient (CLI) | payer MEDICARE ==
[2018-06-30 11:36] LABS: Anion Gap 5 mmol/L; Blood Urea Nitrogen 14 mg/dL (9-20); Carbon Dioxide 30 mmol/L (22-30); Chloride 106 mmol/L (98-107); Potassium 4.9 mmol/L (3.5-5.1); Sodium 141 mmol/L (137-145)
[2018-06-30 11:54] LABS: HCT 50.1 % (39.0-53.0); HGB 16.2 gm/dL (13.0-17.5); MCH 27.3 pg (25.0-35.0); MCHC 32.2 g/dL (31.0-37.0); MCV 84.5 fL (80.0-100.0); Mean Platelet Volume 7.2; Platelet Count 213 k/uL (150-450); RBC 5.93 m/uL (4.30-5.90); WBC 6.6 k/uL (3.8-10.6)
== END | disposition home or self-care (01) ==
LOC: LABPAT 10:23
PROVIDERS: ATTEND Internal Medicine Interventional Cardiology
DX: Z01.812 Encounter for preprocedural laboratory examination (principal); I25.810 Atherosclerosis of coronary artery bypass graft(s) without angina pectoris
CPT/HCPCS: 36415; 80051; 82565; 84520; 85027

== ENCOUNTER 2018-07-07 11:57 | Day surgery (SDC) | payer MEDICARE ==
[2018-07-01 13:01] VITALS: BMI 28.6
[2018-07-07] MEDS ORDERED: LIDOCAINE 1% INJ 10MG/ML (20 ML MDV) ONE (13:32)
[2018-07-07] MEDS ORDERED: fentaNYL (PF) 50 MCG/ML 2 ML AMP ONE (13:38)
[2018-07-07] MEDS ORDERED: LIDOCAINE 1% INJ 10MG/ML (20 ML MDV) SQ ONE (13:38)
[2018-07-07] MEDS ORDERED: fentaNYL (PF) 50 MCG/ML 2 ML AMP IVP ONE (13:38)
[2018-07-07] MEDS ORDERED: BIVALIRUDIN BOLUS 250 MG/50 ML IV ONE (13:42)
[2018-07-07] MEDS ORDERED: BIVALIRUDIN 250 MG in SODIUM CHLORIDE 0.9% 50 ML IV ONE (13:43)
[2018-07-07] MEDS ORDERED: NITROGLYCERIN 1000MCG/10ML SYRINGE INTRACORON ONE (13:50)
[2018-07-07] MEDS ORDERED: IOPAMIDOL-370 100ML BTL INJ ONE ×2 (13:54→14:00)
[2018-07-07] MEDS ORDERED: ZOLPIDEM 5 MG TAB PO PRN (14:07)
[2018-07-07] MEDS ORDERED: NITROGLYCERIN SL TABS 0.4 MG TAB SUBLINGUAL PRN ×2 (14:07→14:08)
[2018-07-07] MEDS ORDERED: ATROPINE SULFATE 0.1 MG/ML 10ML SYRINGE IV PRN (14:07)
[2018-07-07] MEDS ORDERED: RX INFO: IV CONTRAST WAS GIVEN 1 EACH MISC MISCELLANE PRN (14:07)
[2018-07-07] MEDS ORDERED: MAG HYDROX/AL HYDROX/SIMETH 30 ML CUP PO PRN (14:07)
[2018-07-07] MEDS ORDERED: SODIUM CHLORIDE 0.9% 1,000 ML IV SCH (14:15)
--- NOTE | 2018-07-07 17:02 | PTCA ---
PERCUTANEOUSTRANS CORORONARY ANGIOGRAPHY HISTORY: Mr. Urbano is a 72-year-old male with a known history of coronary artery disease status post bypass coronary artery bypass grafting who has underwent stenting of the right coronary artery a few weeks ago, has a known obstructive disease in the obtuse marginal branch. He was admitted electively to undergo stenting of the obtuse marginal branch. The procedure as well as risks and complications were discussed with the patient who is in full understanding and agreement. PROCEDURE: Patient was brought to the labor relations or personnel negotiator in a fasting semisedated state after receiving fentanyl and Benadryl and achieving moderate conscious sedated state. Using Xylocaine anesthesia and Seldinger technique, a 6-[place]er sheath was introduced in the right femoral artery. Left coronary angiography was performed using an FL guiding catheter. After cannulating the left main, a 0.014 balanced medium weight J-wire was advanced and positioned distal obtuse marginal branch. Following that, a 2.25 x 12 mm Trek balloon was advanced 1 inflation at 8 atmospheres was done. Following that the balloon was removed and a 2.25 x 15 mm Xience Lilly stent was deployed, it was dilated at 16 atmospheres. After the last inflation, after appropriate wait, the balloon and the guidewire were withdrawn back in the guiding catheter. Images were obtained and repeated. Those images reveal stable successful stenting. Following that a 6-[place]er 4 bend right and left Gabe catheter was introduced in the system and images of the right coronary artery were performed. Following that, catheter and sheath were removed. Hemostasis was obtained with deployment of an Angio-Seal. There was no immediate complication. Patient is returned to his room in stable condition. Of note, the patient received Angiomax per protocol. He had no chest discomfort or EKG changes with the inflation. RESULTS: 1. Successful stenting of the first obtuse marginal branch with reduction of stenosis from 80% to 0%. 2. Patent stent to the RCA with no evidence of restenoses. RECOMMENDATION: Patient will be continued on aspirin, Effient, beta isaiah, and statin. The importance of dual antiplatelet treatment were discussed with the patient and his family who are in full understanding and agreement. Duration of procedure is 23 minutes. MMODL / IJN: [id number] /
[2018-07-07] MEDS: METOPROLOL TARTRATE 25 MG TAB PO SCH (20:24)
[2018-07-07] MEDS ORDERED: LISINOPRIL 5 MG TAB PO SCH (21:00)
[2018-07-07] MEDS ORDERED: ATORVASTATIN 80 MG TAB PO SCH (21:00)
[2018-07-08 01:26] VITALS: TEMP 98
[2018-07-08 06:10] LABS: Anion Gap 6 mmol/L; Blood Urea Nitrogen 16 mg/dL (9-20); Calcium 8.7 mg/dL (8.4-10.2); Carbon Dioxide 24 mmol/L (22-30); Chloride 109 mmol/L (98-107); Glucose 110 mg/dL (74-99); Potassium 3.9 mmol/L (3.5-5.1); Sodium 139 mmol/L (137-145)
--- NOTE | 2018-07-08 07:12 | PN ---
PROGRESS NOTE Mr. Urbano is a 72-year-old male with a known history of coronary artery disease, status post coronary artery bypass grafting who underwent stenting of his left circumflex obtuse marginal branch yesterday. He is doing well this morning he denying any chest pain. His breathing has been stable. He denies any dizziness or palpitation. He denies any nausea he continued to be on aspirin once a day, Lipitor 80 mg daily, lisinopril 5 mg daily, metoprolol tartrate 25 mg twice a day, Effient 10 mg daily. Requip. PHYSICAL EXAMINATION: Blood pressure 109/60 with the heart rate in the 60s. LUNGS: Clear. HEART: Regular rate and rhythm. S1, S2. No S3. No rub. ABDOMEN: Soft, nontender. EXTREMITIES: No edema. Right Groin: No hematoma. EKG revealed no acute changes. Lab data revealed BUN and creatinine 16 and 0.76. Potassium is 3.9. IMPRESSION: 1. Status post stenting of the obtuse marginal branch. 2. Status post coronary artery bypass grafting. 3. Hypertension. 4. Hyperlipidemia. RECOMMENDATION: Patient should be able to be discharged home today and followed as an outpatient. MMODL / IJN: [id number] /
[2018-07-08] MEDS ORDERED: PRASUGREL 10 MG TAB PO SCH (09:00)
[2018-07-08] MEDS ORDERED: MULTIVITAMINS, THERA 1 EACH TAB PO SCH (09:00)
[2018-07-08] MEDS ORDERED: ASPIRIN 81 MG PO SCH (09:00)
[2018-07-08] MEDS: METOPROLOL TARTRATE 25 MG TAB PO SCH (09:06)
[2018-07-08 09:12] VITALS: BP 142/70; PULSE 53; RESP 18
== END 2018-07-08 09:14 | disposition home or self-care (01) ==
LOC: CATHCVL 11:57 → 3SCARD 15:00 → CATHCVL 07-08 09:14
PROVIDERS: ATTEND Internal Medicine Interventional Cardiology
DX: I25.10 Atherosclerotic heart disease of native coronary artery without angina pectoris (principal); I10 Essential (primary) hypertension; E78.2 Mixed hyperlipidemia; Z95.5 Presence of coronary angioplasty implant and graft; Z95.1 Presence of aortocoronary bypass graft; Z79.82 Long term (current) use of aspirin; Z79.899 Other long term (current) drug therapy; Z79.01 Long term (current) use of anticoagulants
CPT/HCPCS: 85347; 80048; C9600; C1769 ×2; C1760; C1887; C1725; C1894; C1874; J2001; J3010; J0583; Q9967

== ENCOUNTER 2020-12-21 09:34 | Emergency (ER) | payer MEDICARE ==
[2020-12-21 09:42] VITALS: TEMP 97.9
[2020-12-21] MEDS ORDERED: HYDROcodone/APAP 5-325MG 1 EACH TAB PO STA (10:08)
--- NOTE | 2020-12-21 10:14 | ED ---
Upper Extremity HPI - General Chief Complaint: Extremity Injury, Upper Stated Complaint: Lt Shoulder Pain Time Seen by Provider: 12/21/20 09:55 Source: patient, RN notes reviewed Mode of arrival: ambulatory Limitations: no limitations - History of Present Illness Initial Comments: patient's 75-year-old male presented to the ED for left shoulder pain that is progressing the last 2 days. 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 patient reports no distinct injury, trauma or fall to affected arm. Patient denies any loss of sensation feeling or tingling. Patient expresses 8/10 pain, is states he is unable to do full range of motion because of pain. - Related Data Home Medications Medication Instructions Recorded Confirmed Gabapentin [Neurontin] 400 mg PO 1800 08/24/14 07/01/18 rOPINIRole HCL [Requip Xl] 4 mg PO HS 12/09/15 07/07/18 Multivit-Min/Folic/Vit K/Lycop 1 each PO DAILY 05/20/18 07/07/18 [Men's Multivitamin Tablet] Prasugrel [Effient] 10 mg PO DAILY 07/01/18 07/07/18 Previous Rx's Medication Instructions Recorded Atorvastatin [Lipitor] 80 mg PO HS #90 tab 05/27/18 Aspirin 81 mg PO DAILY #30 tab 06/03/18 Metoprolol Tartrate [Lopressor] 25 mg PO BID #60 tab 06/03/18 Nitroglycerin Sl Tabs [Nitrostat] 0.4 mg SUBLINGUAL Q5M PRN #25 tab 06/03/18 lisinopriL [Zestril] 5 mg PO HS #30 tab 06/03/18 predniSONE 50 mg PO DAILY #5 tab 12/21/20 Allergies Allergy/AdvReac Type Severity Reaction Status Date / Time No Known Allergies Allergy Verified 12/21/20 09:42 Review of Systems ROS Statement: Those systems with pertinent positive or pertinent negative responses have been documented in the HPI. ROS Other: All systems not noted in ROS Statement are negative. Past Medical History Past Medical History: Coronary Artery Disease (CAD), Hearing Disorder / Deafness, Myocardial Infarction ([place]) Additional Past Medical History / Comment(s): RLS. SHORTNESS OF BREATH, OCC CP. Last Myocardial Infarction Date:: 2005 History of Any Multi-Drug Resistant Organisms: None Reported Past Surgical History: Coronary Bypass/CABG, Heart Catheterization, Hernia Repair, Orthopedic Surgery Additional Past Surgical History / Comment(s): 5 vessel Cabg in 2006; 10 years old had abdominal sx; fatty tissue removed from L shoulder. SUZANNE FOOT SURG. C. CATH 2013. stents 2019 Past Anesthesia/Blood Transfusion Reactions: No Reported Reaction, Family History of Problems w/ Anesthesia Additional Past Anesthesia/Blood Transfusion Reaction / Comment(s): MOTHER HAD ANESTHESIA PROB, UNSURE WHAT. Date of Last Stent Placement:: 05/31/2018 Past Psychological History: No Psychological Hx Reported Smoking Status: Never smoker Past Alcohol Use History: Occasional Past Drug Use History: None Reported - Past Family History Father History Unknown: Yes Family Medical History: CVA/TIA, Hypertension, Myocardial Infarction ([place]) Mother Family Medical History: Cancer, Coronary Artery Disease (CAD) Sister(s) Family Medical History: Coronary Artery Disease (CAD) General Exam Limitations: no limitations Neck exam: Present: normal inspection. Absent: tenderness, meningismus, lymphadenopathy Respiratory exam: Present: normal lung sounds bilaterally. Absent: respiratory distress, wheezes, rales, rhonchi, stridor Cardiovascular Exam: Present: regular rate, normal rhythm, normal heart sounds. Absent: systolic murmur, diastolic murmur, rubs, gallop, clicks Extremities exam: Present: tenderness Left Shoulder Exam: Present: tenderness, swelling, other (decreased range of motion, point tenderness over coracoid process) Upper Arm exam: Present: normal inspection Elbow exam: Present: normal inspection Forearm Wrist exam: Present: normal inspection Hand Wrist exam: Present: normal inspection Back exam: Present: normal inspection Neurological exam: Present: alert, oriented X3 Skin exam: Present: warm, dry, intact, normal color. Absent: rash Course Vital Signs 12/21/20 09:37 Temperature 97.9 F Pulse Rate 51 L Respiratory 20 Rate Blood Pressure 134/77 O2 Sat by Pulse 96 Oximetry Medical Decision Making - Medical Decision Making 75-year-old present for left shoulder pain. 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 Patient has a left shoulder tendinitis, strain will be discharged in stable condition return parameters discussed. Disposition Clinical Impression: Left shoulder tendinitis, Left shoulder strain Disposition: HOME SELF-CARE Condition: Stable Instructions (If sedation given, give patient instructions): Shoulder Sprain (ED) Additional Instructions: Please return to the Emergency Department if symptoms worsen or any other concerns. Prescriptions: predniSONE 50 mg PO DAILY #5 tab Is patient prescribed a controlled substance at d/c from ED?: No Referrals: Stephen Sosa DO [Primary Care Provider] - 1-2 days Time of Disposition: 10:59
--- NOTE | 2020-12-21 10:32 | XR ---
EXAMINATION TYPE: XR shoulder complete LT DATE OF EXAM: 12/21/2020 COMPARISON: NONE HISTORY: Pain TECHNIQUE: Three views are submitted. FINDINGS: The osseous structures are intact. There is no acute fracture or dislocation. The AC joint demonstr ates mild hypertrophic change. Appearing lucent lesion involving the left humeral neck. Arthropathy of the lateral humeral joint wit h spurring along the inferior margin of the humeral head. IMPRESSION: 1. Mild AC joint arthropathy. 2. Moderate glenohumeral joint arthropathy.
[2020-12-21] MEDS ORDERED: ACET/COD 300 MG/30 MG STARTER PACK 6 TAB BTL PO STA (10:56)
[2020-12-21 11:27] VITALS: BP 132/76; PULSE 52; RESP 16
== END 2020-12-21 11:26 | disposition home or self-care (01) ==
LOC: EC 09:34
DX: S46.912A Strain of unspecified muscle, fascia and tendon at shoulder and upper arm level, left arm, initial encounter (principal); I25.10 Atherosclerotic heart disease of native coronary artery without angina pectoris; I25.2 Old myocardial infarction; Z79.82 Long term (current) use of aspirin; Z79.52 Long term (current) use of systemic steroids; Z79.899 Other long term (current) drug therapy; Z95.1 Presence of aortocoronary bypass graft; Z82.49 Family history of ischemic heart disease and other diseases of the circulatory system; X58.XXXA Exposure to other specified factors, initial encounter
CPT/HCPCS: 99283

== ENCOUNTER 2020-12-21 16:31 | Emergency (ER) | payer MEDICARE ==
[2020-12-21 19:05] VITALS: TEMP 97.9
[2020-12-21] MEDS ORDERED: KETOROLAC 15 MG/ML 1 ML VIAL IVP STA (21:46)
[2020-12-21] MEDS ORDERED: methylPREDNISolone SOD SUCCI 125 MG/2 ML VIAL IV STA (21:46)
--- NOTE | 2020-12-21 22:31 | XR ---
EXAMINATION TYPE: XR chest 2V DATE OF EXAM: 12/21/2020 COMPARISON: 05/31/2018 HISTORY: Difficulty breathing TECHNIQUE: FINDINGS: Heart is normal. Thoracic aorta is atheromatous. There are sternal wires. Lungs are clear o f consolidation. There is no heart failure. Bony thorax is intact. IMPRESSION: No active cardiopulmonary disease. There is improved aeration of the lung bases compared to last exam.
[2020-12-21 22:38] LABS: Basophils % (A) 0 %; Eosinophils # (A) 0.2 k/uL (0-0.7); Eosinophils % (A) 3 %; HCT 48.6 % (39.0-53.0); HGB 15.7 gm/dL (13.0-17.5); Lymphocytes # (A) 1.4 k/uL (1.0-4.8); Lymphocytes % (A) 20 %; MCH 28.5 pg (25.0-35.0); MCHC 32.2 g/dL (31.0-37.0); MCV 88.4 fL (80.0-100.0); Mean Platelet Volume 7.8; Monocytes # (A) 0.6 k/uL (0-1.0); Monocytes % (A) 8 %; Neutrophils # (A) 4.8 k/uL (1.3-7.7); Neutrophils % (A) 66 %; Platelet Count 200 k/uL (150-450); RDW 13.6 % (11.5-15.5); WBC 7.2 k/uL (3.8-10.6)
[2020-12-21 22:49] LABS: ALT 28 U/L (4-49); AST 25 U/L (17-59); African American GFR (CKD) >90 (>60 ml/min/1.73 sqM); Albumin 3.8 g/dL (3.5-5.0); Alkaline Phosphatase 84 U/L (38-126); Anion Gap 6 mmol/L; Blood Urea Nitrogen 21 mg/dL (9-20); Calcium 9.2 mg/dL (8.4-10.2); Carbon Dioxide 26 mmol/L (22-30); Chloride 105 mmol/L (98-107); Glucose 128 mg/dL (74-99); Non-African American GFR(CKD) >90 (>60 ml/min/1.73 sqM); Potassium 3.9 mmol/L (3.5-5.1); Sodium 137 mmol/L (137-145); Total Bilirubin 0.7 mg/dL (0.2-1.3); Total Protein 6.3 g/dL (6.3-8.2)
[2020-12-21 22:53] LABS: INR 1.1 (<1.2); Partial Thromboplastin Time 22.3 sec (22.0-30.0); Prothrombin Time 11.2 sec (9.0-12.0)
--- NOTE | 2020-12-21 23:43 | ED ---
Upper Extremity HPI - General Chief Complaint: Extremity Injury, Upper Stated Complaint: shoulder/arm pain Time Seen by Provider: 12/21/20 21:32 Source: patient Mode of arrival: ambulatory Limitations: no limitations - History of Present Illness Initial Comments: 75-year-old male patient presents the emergency department today for evaluation of left shoulder pain. Patient states he was seen and evaluated earlier today and diagnosed with tendinitis. Patient states he took a nap when he woke from sleep he had even more pain to the shoulder. States he is unable to move without extreme discomfort. States the pain radiates down the left arm. Denies numbness or tingling to the hand. Denies any known injury. Patient does report some shortness of breath today. Denies any chest pain. Does have history of cardiac disease. He did take Tylenol with Codeine around 3 PM. Patient denies any recent rash, fever, chills, cough, abdominal pain, nausea, vomiting, diarrhea, constipation, back pain, dizziness, weakness, hematuria, dysuria, urinary urgency, urinary frequency, headache, visual changes, or any other complaints. - Related Data Home Medications Medication Instructions Recorded Confirmed Gabapentin [Neurontin] 400 mg PO 1800 08/24/14 07/01/18 rOPINIRole HCL [Requip Xl] 4 mg PO HS 12/09/15 07/07/18 Multivit-Min/Folic/Vit K/Lycop 1 each PO DAILY 05/20/18 07/07/18 [Men's Multivitamin Tablet] Prasugrel [Effient] 10 mg PO DAILY 07/01/18 07/07/18 Previous Rx's Medication Instructions Recorded Atorvastatin [Lipitor] 80 mg PO HS #90 tab 05/27/18 Aspirin 81 mg PO DAILY #30 tab 06/03/18 Metoprolol Tartrate [Lopressor] 25 mg PO BID #60 tab 06/03/18 Nitroglycerin Sl Tabs [Nitrostat] 0.4 mg SUBLINGUAL Q5M PRN #25 tab 06/03/18 lisinopriL [Zestril] 5 mg PO HS #30 tab 06/03/18 HYDROcodone/APAP 5-325MG [Wallace 5] 1 each PO Q6HR PRN #12 tab 12/21/20 predniSONE 50 mg PO DAILY #5 tab 12/21/20 Allergies Allergy/AdvReac Type Severity Reaction Status Date / Time No Known Allergies Allergy Verified 12/21/20 19:05 Review of Systems ROS Statement: Those systems with pertinent positive or pertinent negative responses have been documented in the HPI. ROS Other: All systems not noted in ROS Statement are negative. Past Medical History Past Medical History: Coronary Artery Disease (CAD), Hearing Disorder / Deafness, Myocardial Infarction ([place]) Additional Past Medical History / Comment(s): RLS. SHORTNESS OF BREATH, OCC CP. Last Myocardial Infarction Date:: 2005 History of Any Multi-Drug Resistant Organisms: None Reported Past Surgical History: Coronary Bypass/CABG, Heart Catheterization, Hernia Repair, Orthopedic Surgery Additional Past Surgical History / Comment(s): 5 vessel Cabg in 2005; 10 years old had abdominal sx; fatty tissue removed from L shoulder. SUZANNE FOOT SURG. C. CATH 2013. stents 2019 Past Anesthesia/Blood Transfusion Reactions: No Reported Reaction, Family History of Problems w/ Anesthesia Additional Past Anesthesia/Blood Transfusion Reaction / Comment(s): MOTHER HAD ANESTHESIA PROB, UNSURE WHAT. Date of Last Stent Placement:: 05/31/2018 Past Psychological History: No Psychological Hx Reported Smoking Status: Never smoker Past Alcohol Use History: Occasional Past Drug Use History: None Reported - Past Family History Father History Unknown: Yes Family Medical History: CVA/TIA, Hypertension, Myocardial Infarction ([place]) Mother Family Medical History: Cancer, Coronary Artery Disease (CAD) Sister(s) Family Medical History: Coronary Artery Disease (CAD) General Exam Limitations: no limitations General appearance: alert, in no apparent distress, other (This is a well developed, welll nourished adult male patient in no acute distress. Vital signs upon presentation temperature 97.9F, pulse 83, respirations 20, blood pressure 162/92, pulse ox 97% on room air.) ENT exam: Present: normal exam, normal oropharynx, mucous membranes moist Respiratory exam: Present: normal lung sounds bilaterally. Absent: respiratory distress, wheezes, rales, rhonchi, stridor Cardiovascular Exam: Present: regular rate, normal rhythm, normal heart sounds. Absent: systolic murmur, diastolic murmur, rubs, gallop, clicks GI/Abdominal exam: Present: soft, normal bowel sounds. Absent: distended, tenderness, guarding, rebound, rigid Extremities exam: Present: normal inspection, normal capillary refill, other (Skin to the left shoulder is pink, warm, dry, no redness, no swelling. Skin the left arm is pink, warm, dry. Cap refill less than 3 seconds. Radial pulses 2+.). Absent: full ROM (Decreased range of motion due to increased pain with movement), tenderness, pedal edema, joint swelling, calf tenderness Neurological exam: Present: alert, oriented X3, CN II-XII intact Psychiatric exam: Present: normal affect, normal mood Skin exam: Present: warm, dry, intact, normal color. Absent: rash Course Vital Signs 12/21/20 12/22/20 19:02 00:05 Temperature 97.9 F Pulse Rate 83 81 Respiratory 20 18 Rate Blood Pressure 162/92 141/84 O2 Sat by Pulse 97 97 Oximetry Medical Decision Making - Medical Decision Making 75-year-old male patient presented to the emergency department today for evaluation of left shoulder pain. Physical examination was unremarkable. Did have decreased range of motion due to pain with movement. He is afebrile normal vital signs. He did report some dyspnea so I did do EKG which is unremarkable. Labs reviewed and were unremarkable. He did have x-ray of the shoulder earlier today at a previous visit. He was given IV steroids and Toradol, upon reevaluation states pain is improved. He'll be discharged to follow-up with his primary care physician for recheck in 1-2 days. He does have an appointment with orthopedics on Thursday. Return parameters were discussed in detail. Patient and verbalized understanding and agree with this plan. My attending is Dr. Salcido - Lab Data Result diagrams: 12/21/20 22:16 12/21/20 22:16 Lab Results 12/21/20 12/21/20 12/21/20 Range/Units 22:16 22:16 22:16 WBC 7.2 (3.8-10.6) k/uL RBC 5.50 (4.30-5.90) m/uL Hgb 15.7 (13.0-17.5) gm/dL Hct 48.6 (39.0-53.0) % MCV 88.4 (80.0-100.0) fL MCH 28.5 (25.0-35.0) pg MCHC 32.2 (31.0-37.0) g/dL RDW 13.6 (11.5-15.5) % Plt Count 200 (150-450) k/uL MPV 7.8 Neutrophils % 66 % Lymphocytes % 20 % Monocytes % 8 % Eosinophils % 3 % Basophils % 0 % Neutrophils # 4.8 (1.3-7.7) k/uL Lymphocytes # 1.4 (1.0-4.8) k/uL Monocytes # 0.6 (0-1.0) k/uL Eosinophils # 0.2 (0-0.7) k/uL Basophils # 0.0 (0-0.2) k/uL PT 11.2 (9.0-12.0) sec INR 1.1 (<1.2) APTT 22.3 (22.0-30.0) sec D-Dimer 0.26 (<0.60) mg/L FEU Sodium 137 (137-145) mmol/L Potassium 3.9 (3.5-5.1) mmol/L Chloride 105 (98-107) mmol/L Carbon Dioxide 26 (22-30) mmol/L Anion Gap 6 mmol/L BUN 21 H (9-20) mg/dL Creatinine 0.67 (0.66-1.25) mg/dL Est GFR (CKD-EPI)AfAm >90 (>60 ml/min/1.73 sqM) Est GFR (CKD-EPI)NonAf >90 (>60 ml/min/1.73 sqM) Glucose 128 H (74-99) mg/dL Calcium 9.2 (8.4-10.2) mg/dL Total Bilirubin 0.7 (0.2-1.3) mg/dL AST 25 (17-59) U/L ALT 28 (4-49) U/L Alkaline Phosphatase 84 (38-126) U/L Troponin I (0.000-0.034) ng/mL Total Protein 6.3 (6.3-8.2) g/dL Albumin 3.8 (3.5-5.0) g/dL 12/21/20 Range/Units 22:16 WBC (3.8-10.6) k/uL RBC (4.30-5.90) m/uL Hgb (13.0-17.5) gm/dL Hct (39.0-53.0) % MCV (80.0-100.0) fL MCH (25.0-35.0) pg MCHC (31.0-37.0) g/dL RDW (11.5-15.5) % Plt Count (150-450) k/uL MPV Neutrophils % % Lymphocytes % % Monocytes % % Eosinophils % % Basophils % % Neutrophils # (1.3-7.7) k/uL Lymphocytes # (1.0-4.8) k/uL Monocytes # (0-1.0) k/uL Eosinophils # (0-0.7) k/uL Basophils # (0-0.2) k/uL PT (9.0-12.0) sec INR (<1.2) APTT (22.0-30.0) sec D-Dimer (<0.60) mg/L FEU Sodium (137-145) mmol/L Potassium (3.5-5.1) mmol/L Chloride (98-107) mmol/L Carbon Dioxide (22-30) mmol/L Anion Gap mmol/L BUN (9-20) mg/dL Creatinine (0.66-1.25) mg/dL Est GFR (CKD-EPI)AfAm (>60 ml/min/1.73 sqM) Est GFR (CKD-EPI)NonAf (>60 ml/min/1.73 sqM) Glucose (74-99) mg/dL Calcium (8.4-10.2) mg/dL Total Bilirubin (0.2-1.3) mg/dL AST (17-59) U/L ALT (4-49) U/L Alkaline Phosphatase (38-126) U/L Troponin I <0.012 (0.000-0.034) ng/mL Total Protein (6.3-8.2) g/dL Albumin (3.5-5.0) g/dL - EKG Data -: EKG Interpreted by Me EKG Comments: EKG obtained at 2235 shows sinus rhythm with marked sinus arrhythmia. Ventricular rate is 75, CA interval 170, QRS duration 88, QT 406, QTc 453. No evidence of ST elevation or depression. - Radiology Data Radiology results: report reviewed, image reviewed Two-view x-ray of the chest are obtained. Report was reviewed in its entirety. Impression by Dr. Yusuf shows no active cardiopulmonary disease. There is improved aeration of the lung bases compared to last exam. Disposition Clinical Impression: Left shoulder pain Disposition: HOME SELF-CARE Condition: Good Instructions (If sedation given, give patient instructions): Shoulder Pain (ED) Additional Instructions: Take medications as directed. Follow-up with [address] he'll plan. Return to the emergency department for any new, worsening, or concerning symptoms. Prescriptions: HYDROcodone/APAP 5-325MG [Wallace 5] 1 each PO Q6HR PRN #12 tab PRN Reason: Pain Is patient prescribed a controlled substance at d/c from ED?: Yes When asked, does pt state using other controlled substances?: No If prescribed controlled substance>3 days was MAPS reviewed?: Prescribed <3 Days If opioid is for acute pain is fill amount 7 days or less?: Yes If Rx opioid, was Start Talking consent form obtained?: Yes Referrals: Stephen Sosa DO [Primary Care Provider] - 1-2 days Time of Disposition: 23:50
[2020-12-21] MEDS ORDERED: HYDROmorphone 0.5 MG/0.5 ML SYRINGE IVP STA (23:48)
[2020-12-22 00:05] VITALS: BP 141/84; PULSE 81; RESP 18
== END 2020-12-22 00:05 | disposition home or self-care (01) ==
LOC: EC 16:31
DX: M25.512 Pain in left shoulder (principal); I25.2 Old myocardial infarction; I25.10 Atherosclerotic heart disease of native coronary artery without angina pectoris; Z79.52 Long term (current) use of systemic steroids; Z79.82 Long term (current) use of aspirin; Z79.899 Other long term (current) drug therapy; Z95.1 Presence of aortocoronary bypass graft; Z82.49 Family history of ischemic heart disease and other diseases of the circulatory system
CPT/HCPCS: 36415; 93005; 85379; 80053; 84484; 85025; 85610; 85730; 71046; 96374; 96375 ×2; 99284; J2930; J1885; J1170

== ENCOUNTER → 2020-12-26 | Outpatient (CLI) | payer MEDICARE ==
--- NOTE | 2020-12-26 13:56 | XR ---
EXAMINATION TYPE: XR chest 2V DATE OF EXAM: 12/26/2020 COMPARISON: 12/21/2020 INDICATION: MRI clearance for left shoulder TECHNIQUE: Frontal and lateral views of the chest are obtained. FINDINGS: The heart size is normal. The pulmonary vasculature is normal. The lungs are clear. Sternotomy wires are in the midline. Epicardial lead is evident on the frontal projection which contraindicate MRI. IMPRESSION: 1. Epicardial lead along the right heart base contraindicate MRI. 2. No acute pulmonary process
== END | disposition home or self-care (01) ==
LOC: RADXRMAIN 09:46
PROVIDERS: ATTEND Orthopaedic Surgery
DX: Z53.09 Procedure and treatment not carried out because of other contraindication (principal)
CPT/HCPCS: 71046

== ENCOUNTER → 2021-01-01 | Outpatient (CLI) | payer MEDICARE ==
--- NOTE | 2021-01-01 09:58 | CT ---
EXAMINATION TYPE: CT shoulder LT wo con DATE OF EXAM: 01/01/2021 COMPARISON: Plain film 12/21/2020 HISTORY: Left shoulder pain CT DLP: 508.00 mGycm Automated exposure control for dose reduction was used. Helical imaging through the left shoulder. FINDINGS: Osteoarthritic changes are again noted. There is marginal spurring at the glenohumeral joint, acromio clavicular joint, subchondral cyst formation noted within the bony labrum. Joint space loss is presen t, remodeling the humeral head and bony labrum is noted. There is a distal acromial spur. On coronal image #33 there is a small ossific density present within the soft tissues measuring only 3 mm that i s well-corticated and is of questionable clinical significance. No evident fracture or dislocation. Sclerotic bordered focus along the cortex the anterior metaphysea l left humerus with cystic lucency measures 1 cm, nonaggressive appearance. There is a bandlike area of increased attenuation present within the left lower lobe which may reflect some atelectasis, diffi cult to exclude underlying airspace disease, only partial visualization, possible hiatal hernia. Ther e are dense coronary artery calcifications, patient is post median sternotomy. IMPRESSION: OSTEOARTHRITIS. ADDITIONAL FINDINGS ABOVE.
== END | disposition home or self-care (01) ==
LOC: RADCTMAIN 07:06
PROVIDERS: ATTEND Orthopaedic Surgery
DX: M19.012 Primary osteoarthritis, left shoulder (principal)

== ENCOUNTER 2023-02-25 11:44 | Emergency (ER) | payer OTHER, MEDICARE ==
[2023-02-25] MEDS ORDERED: DIPH,PERTUS(ACELL)TETVAC-LF 0.5 ML VIAL IM ONE (12:15)
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
[2023-02-25 12:22] VITALS: RESP 18
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
--- NOTE | 2023-02-25 13:32 | XR ---
EXAMINATION TYPE: XR forearm LT DATE OF EXAM: 02/25/2023 COMPARISON: None HISTORY: Fall, pain TECHNIQUE: 2 view left forearm FINDINGS: No acute fracture or dislocation. Soft tissues are normal. Joint spaces are preserved. Foll ow up exams can be performed 7-10 days from acute trauma for continued pain. IMPRESSION: 1. No acute osseous abnormality left forearm
[2023-02-25] MEDS ORDERED: KETOROLAC 15 MG/ML 1 ML VIAL IVP STA (13:43)
--- NOTE | 2023-02-25 14:50 | XR ---
EXAMINATION TYPE: XR chest 2V DATE OF EXAM: 02/25/2023 COMPARISON: 04/22/2022 INDICATION: Difficulty breathing TECHNIQUE: Frontal and lateral views of the chest are obtained. FINDINGS: The heart size is normal. The pulmonary vasculature is normal. Mild infiltrate may be at the left base. Correlate for atelectasis or pneumonia. Follow-up can be per formed as clinically indicated. Sternotomy wires are present.. No pneumothorax is evident. IMPRESSION: 1. Suggestion of mild left lower lobe infiltrate. Correlate for atelectasis or pneumonia.
--- NOTE | 2023-02-25 14:53 | XR ---
EXAMINATION TYPE: XR ribs bilateral DATE OF EXAM: 02/25/2023 COMPARISON: 02/25/2023 HISTORY: Injury, pain TECHNIQUE: Bilateral RIBS 2 views each FINDINGS: There may be some prominence of the anterior left fifth rib. Correlate with location of pat ient's pain. Pancytopenia lesion is not excluded. Posttraumatic change is not identified. IMPRESSION: 1. There may be an expansile lesion of the anterior left fifth rib. Clinical correlation recommended . CT could be performed if additional evaluation would be of benefit. 2. No acute displaced rib fractures identified
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
[2023-02-25 17:29] VITALS: BP 143/83; PULSE 61; TEMP 97.6
== END 2023-02-25 17:28 | disposition home or self-care (01) ==
LOC: EC 11:44
DX: S20.219A Contusion of unspecified front wall of thorax, initial encounter (principal); S51.012A Laceration without foreign body of left elbow, initial encounter; R00.1 Bradycardia, unspecified; I25.10 Atherosclerotic heart disease of native coronary artery without angina pectoris; I25.2 Old myocardial infarction; Z79.82 Long term (current) use of aspirin; Z23 Encounter for immunization; V89.2XXA Person injured in unspecified motor-vehicle accident, traffic, initial encounter; Y92.411 Interstate highway as the place of occurrence of the external cause
CPT/HCPCS: 93005; 71110; 73090; 71046; 72125; 70450; 71250; 90715; 99285; 90471; 96374; J1885

== ENCOUNTER → 2023-03-05 | Outpatient (CLI) | payer OTHER ==
--- NOTE | 2023-03-05 12:38 | XR ---
EXAMINATION TYPE: XR chest 1V, XR ribs 4 views bilateral DATE OF EXAM: 03/05/2023 COMPARISON: 03/05/2023, CT 02/25/2023 HISTORY: 77-year-old male [id number] CONTUSION OF THORAX, UNSPECIFIED, SUBSEQU TECHNIQUE: Single frontal view of the chest is obtained. FINDINGS: CHEST: Median sternotomy wires are present with post-CABG clips. Tortuous/ectatic thoracic aorta. Hea rt normal size. Nodularity at the left base most compatible with nipple shadow. No consolidation or p leural effusion. Bilateral RIBS: No displaced rib fracture is identified on either side. IMPRESSION: 1. Post-CABG changes. No acute process seen. 2. RIBS: No displaced rib fracture identified on either side. Retrospective review of the patient's 1 04/28/2022 CT may show a very subtle, nondisplaced right lateral fifth rib fracture. Correlate for any focal pain here.
== END | disposition home or self-care (01) ==
LOC: RADXRMAIN 11:44
PROVIDERS: ATTEND Emergency Medicine
DX: S20.20XD Contusion of thorax, unspecified, subsequent encounter (principal); X58.XXXD Exposure to other specified factors, subsequent encounter; Z95.1 Presence of aortocoronary bypass graft
CPT/HCPCS: 71045; 71110

== ENCOUNTER → 2023-09-25 | Outpatient (CLI) | payer MEDICARE ==
--- NOTE | 2023-09-26 11:12 | CT ---
EXAMINATION TYPE: CT abdomen pelvis wo con DATE OF EXAM: 09/25/2023 COMPARISON: None INDICATION: hematuria DLP: 851 mGycm, Automated exposure control for dose reduction was used. CONTRAST: 0 mL of Isovue 300. Study performed without Oral Contrast TECHNIQUE: Axial images were obtained from above the diaphragm to the pubic rami in the axial plane a t 5 mm thick sections. Reconstructed images are reviewed on the computer in the coronal plane. FINDINGS: Limited CT sections are obtained the lung bases. There is mild infiltrate in the posterior right gilbert g base. Correlate for atelectasis. Pneumonia could be considered. Mild coronary artery calcifications present. CT ABDOMEN: Liver: Normal Spleen: Normal Pancreas: Normal Adrenal glands: The adrenal glands are normal. Gallbladder: No stones are present. Kidneys: No masses are evident. No hydronephrosis is present. No cysts are present. No renal stone s are evident. No ureteral stones are evident. Aorta: Vascular calcification is within the aorta. Inferior vena cava: Normal. CT PELVIS: Right inguinal hernia containing mesenteric fat is present. No loops of bowel are all. Loops of bowel within the abdomen and pelvis are normal. The study is without oral contrast limit ing bowel evaluation. Appendix: Normal as visualized. Urinary bladder: Normal. Genitourinary structures: Prostate is prominent. Osseous structures: No suspicious lytic or sclerotic lesions. IMPRESSION: 1. No suspicious abnormality account for hematuria. 2. Left lower lobe infiltrate. Correlate for pneumonia or atelectasis. 3. Right inguinal hernia containing mesenteric fat. No loops of bowel
== END | disposition home or self-care (01) ==
LOC: RADCTMAIN 07:42
PROVIDERS: ATTEND Pediatrics
DX: R31.9 Hematuria, unspecified (principal); K40.90 Unilateral inguinal hernia, without obstruction or gangrene, not specified as recurrent; R91.8 Other nonspecific abnormal finding of lung field
CPT/HCPCS: 74176

== ENCOUNTER 2023-11-25 07:43 | Day surgery (SDC) | payer MEDICARE ==
[~2023-11-25 07:43] MED LIST changes: -ALPRAZolam 0.25 MG TAB PO PRN; -ALPRAZolam 0.5 MG TAB PO PRN; -ASPIRIN 325 MG TAB PO STA; -ATORVASTATIN 80 MG TAB PO STA; +LIDOCAINE 1% (10MG/ML) FOR IV START INTRADERMA PRN; -NITROGLYCERIN SL TABS 0.4 MG TAB SUBLINGUAL PRN; -SODIUM CHLORIDE 0.9% 1,000 ML in EMPTY BAG 1 BAG IV ONE; +TETRACAINE 0.5% OPHTH (PF) DROPS 4 ML BTL OP PRN
[2023-11-25 08:14] VITALS: TEMP 97
[2023-11-25] MEDS: CYCLOPENTOLATE 1% OPHTH SOLN 2 ML BTL OP PRN (08:25)
[2023-11-25] MEDS: PHENYLEPHRINE 2.5% OPHTH DRP 2ML OP PRN (08:28)
[2023-11-25] MEDS: IV FLUID CONTINUATION 1,000 ML IV ONE (08:34)
[2023-11-25] MEDS: LACTATED RINGERS 1,000 ML IV SCH (08:34)
[2023-11-25] MEDS ORDERED: MIDAZOLAM 2 MG/2 ML VIAL ONE (08:49)
[2023-11-25] MEDS ORDERED: fentaNYL (PF) 50 MCG/ML 2 ML AMP ONE (08:49)
[2023-11-25] MEDS: EPINEPHrine (PF) 0.3 ML in BALANCED SALT IRRIG SOLN COMB2 500 ML IRRIGATION ONE (09:05)
[2023-11-25] MEDS: BALANCED SALT IRRIG SOLN COMB2 15 ML IRRIG.SOLN INTRAOCULA ONE (09:06)
[2023-11-25] MEDS: EPINEPHrine (PF) 1 MG/ML AMP MISCELLANE ONE (09:06)
[2023-11-25] MEDS: DUOVISC KIT (GREEN BOX) INTRAOCULA ONE (09:06)
[2023-11-25] MEDS: LIDOCAINE 1% (PF) 10MG/ML VIAL MISCELLANE ONE (09:06)
[2023-11-25] MEDS: TIMOLOL 0.5% OPHTH DROPS 5 ML BTL OP PRN (09:07)
[2023-11-25] MEDS: MOXIFLOXACIN HCL 0.5% DROPS 3 ML BTL OP PRN (09:07)
--- NOTE | 2023-11-25 09:23 | P.OP ---
Date of Procedure: 11/25/23 Preoperative Diagnosis: NS & CS Postoperative Diagnosis: same Procedure(s) Performed: PIOL< OS Implants: MX60E 19.00 Anesthesia: MAC Surgeon: Evan Bull Pathology: none sent Condition: stable Disposition: same day Indications for Procedure: blurry vision Operative Findings: no complications
[2023-11-25 10:08] VITALS: BP 131/78; PULSE 55; RESP 17
--- NOTE | 2023-11-25 14:25 | OP ---
OPERATIVE REPORT DATE OF SERVICE : 11/25/2023 PREOPERATIVE DIAGNOSIS: Nuclear sclerosis, cortical sclerosis, left eye. POSTOPERATIVE DIAGNOSIS: Nuclear sclerosis, cortical sclerosis, left eye. OPERATION: Phacoemulsification of cataract and intraocular lens implant, left eye. ESTIMATED BLOOD LOSS: Zero. SPECIMEN TAKEN: None. NARRATIVE: After obtaining the appropriate consent, the patient was brought to the operating room where the patient was placed under cardiac monitoring and prepped and draped in the usual sterile manner. At the 5 o'clock position, a 15-degree super sharp blade was used to create a paracentesis followed by instillation of 1% Xylocaine MPF with epinephrine 1:1000 MPF and balanced salt solution in a ratio of 1:2:1 into the anterior chamber. This was followed by Amvisc viscoelastic to stabilize the anterior chamber. At the 3 o'clock position a self-sealing corneal flap incision was created using 2.8 mm zari keratome. A cystotome was used to initiate a continuous tear capsulorrhexis which was completed with the Utrata forceps. A Binkhorst cannula was used to hydrodissect the lens nucleus followed by hydrodelineation. Phacoemulsification of the lens was performed utilizing phacochop in 17.10 seconds at 12.2% power. The remaining cortical material was removed using the irrigation aspiration mode followed by additional 1% Xylocaine MPF into the anterior chamber followed by viscoelastic to stabilize the capsular bag. A MX60E 19.00 posterior chamber lens was placed into the capsular bag without difficulty. The remaining viscoelastic material was removed from the anterior chamber with the irrigation/aspiration. Balanced salt solution was used to normalize the intraocular pressure. The incision was checked for watertight integrity. The patient then received 2 drops of 0.5% timolol followed by 2 drops Vigamox, was lightly patched and shielded in the usual manner. There were no complications from the procedure. The patient tolerated the procedure well and was returned to recovery in good condition. MMODL / IJN: [id number] / KIMBERLYN
== END 2023-11-25 10:24 | disposition home or self-care (01) ==
LOC: OR 07:43
PROVIDERS: ATTEND Ophthalmology
DX: H25.12 Age-related nuclear cataract, left eye (principal); H25.012 Cortical age-related cataract, left eye; I25.2 Old myocardial infarction; I25.10 Atherosclerotic heart disease of native coronary artery without angina pectoris; H91.90 Unspecified hearing loss, unspecified ear; Z79.899 Other long term (current) drug therapy; Z95.5 Presence of coronary angioplasty implant and graft

== ENCOUNTER 2023-12-09 06:11 | Day surgery (SDC) | payer MEDICARE ==
[2023-12-07 13:04] VITALS: BMI 28.6
[~2023-12-09 06:11] MED LIST changes: -LIDOCAINE 1% (10MG/ML) FOR IV START INTRADERMA PRN
[2023-12-09] MEDS: IV FLUID CONTINUATION 1,000 ML IV ONE (06:44)
[2023-12-09] MEDS: LACTATED RINGERS 1,000 ML IV SCH (06:52)
[2023-12-09] MEDS: CYCLOPENTOLATE 1% OPHTH SOLN 2 ML BTL OP PRN (06:52)
[2023-12-09 06:57] VITALS: TEMP 97.1
[2023-12-09] MEDS: PHENYLEPHRINE 2.5% OPHTH DRP 2ML OP PRN (06:57)
[2023-12-09] MEDS ORDERED: MIDAZOLAM 2 MG/2 ML VIAL ONE (07:24)
[2023-12-09] MEDS: EPINEPHrine (PF) 0.3 ML in BALANCED SALT IRRIG SOLN COMB2 500 ML IRRIGATION ONE (07:45)
[2023-12-09] MEDS: HYALURONATE SODIUM INTRAOCULAR 1 EACH SYRINGE (12MG/ML) INTRAOCULA ONE (07:46)
[2023-12-09] MEDS: MOXIFLOXACIN HCL 0.5% DROPS 3 ML BTL OP PRN (07:47)
[2023-12-09] MEDS: LIDOCAINE 1% (PF) 10MG/ML VIAL MISCELLANE ONE (07:47)
[2023-12-09] MEDS: TIMOLOL 0.5% OPHTH DROPS 5 ML BTL OP PRN (07:47)
[2023-12-09] MEDS: BALANCED SALT IRRIG SOLN COMB2 15 ML IRRIG.SOLN INTRAOCULA ONE (07:47)
--- NOTE | 2023-12-09 08:01 | P.OP ---
Date of Procedure: 12/09/23 Preoperative Diagnosis: NS &CS Postoperative Diagnosis: same Procedure(s) Performed: PIOL, OD Implants: MX60E 19.00 Anesthesia: MAC Surgeon: Evan Bull Pathology: none sent Condition: stable Disposition: same day Indications for Procedure: blurry vision Operative Findings: no complications
[2023-12-09 08:21] VITALS: BP 121/67; PULSE 49; RESP 18
--- NOTE | 2023-12-10 14:49 | OP ---
OPERATIVE REPORT DATE OF SERVICE : 12/09/2023 PREOPERATIVE DIAGNOSIS: Nuclear sclerosis, cortical sclerosis. POSTOPERATIVE DIAGNOSIS: Nuclear sclerosis, cortical sclerosis. OPERATION: Phacoemulsification of cataract and interocular lens implant, right eye. ESTIMATED BLOOD LOSS: Zero. SPECIMEN TAKEN: None. NARRATIVE: After obtaining the appropriate consent, the patient was brought to the operating room where the patient was placed under cardiac monitoring and prepped and draped in the usual sterile manner. At the 11 o'clock position, a 15-degree super sharp blade was used to create a paracentesis followed by instillation of 1% Xylocaine MPF 50:50 mix with BSS into the anterior chamber. This was followed by Amvisc viscoelastic to stabilize the anterior chamber. At the 9 o'clock position a self-sealing corneal flap incision was created using 2.8 mm zari keratome. A cystotome was used to initiate a continuous tear capsulorrhexis which was completed with the Utrata forceps. A Binkhorst cannula was used to hydrodissect the lens nucleus followed by hydrodelineation. Phacoemulsification of the lens was performed utilizing phacochop in 13.29 seconds at 20.1% power. The remaining cortical material was removed using the irrigation aspiration mode followed by additional 1% Xylocaine MPF into the anterior chamber followed by viscoelastic to stabilize the capsular bag. A [employer] MX60E 19.0 diopters posterior chamber lens was placed into the capsular bag without difficulty. The remaining viscoelastic material was removed from the anterior chamber with the irrigation/aspiration. Balanced salt solution was used to normalize the intraocular pressure. The incision was checked for watertight integrity. The patient then received 2 drops of 0.5% timolol followed by 2 drops Vigamox, was lightly patched and shielded in the usual manner. There were no complications from the procedure. The patient tolerated the procedure well and was returned to recovery in good condition. MMODL / IJN: [id number] /
== END 2023-12-09 08:43 | disposition home or self-care (01) ==
LOC: OR 06:11
PROVIDERS: ATTEND Ophthalmology
DX: H25.11 Age-related nuclear cataract, right eye (principal); H25.011 Cortical age-related cataract, right eye; E78.00 Pure hypercholesterolemia, unspecified; G25.81 Restless legs syndrome; N40.1 Benign prostatic hyperplasia with lower urinary tract symptoms; N13.8 Other obstructive and reflux uropathy; Z96.1 Presence of intraocular lens; Z98.42 Cataract extraction status, left eye; Z79.82 Long term (current) use of aspirin; Z79.899 Other long term (current) drug therapy